=== PATIENT | female | born 1970 | race Two or more races ===

== ENCOUNTER 2017-09-09 14:11 | Inpatient (IN) | payer OTHER ==
[2017-09-09 15:53] VITALS: BMI 16.0
[2017-09-09] MEDS ORDERED: ALBUTEROL SO4 18 GM HFA INHALER IH PRN (16:10)
[2017-09-09] MEDS ORDERED: LOPERAMIDE HCL 2 MG CAPSULE PO PRN (16:12)
[2017-09-09] MEDS ORDERED: ALBUTEROL SO4 2.5/IPRATROPIUM 0.5 INH SOL 3 ML VIAL.NEB. NEB PRN (16:12)
[2017-09-09] MEDS ORDERED: chlordiazePOXIDE HCL 25 MG CAPSULE PO PRN (16:12)
[2017-09-09] MEDS ORDERED: MENTHOL/PHENOL 1 EACH UD MM PRN (16:12)
[2017-09-09] MEDS ORDERED: MAG HYDROX/AL HYDROX/SIMETH 30 ML UNIT-DOSE CUP PO PRN (16:12)
[2017-09-09] MEDS ORDERED: guaiFENesin/D-METHORPHAN HB 10 ML UNIT-DOSE CUPS PO PRN (16:12)
[2017-09-09] MEDS ORDERED: MAGNESIUM CITRATE 300 ML BOTTLE PO PRN (16:12)
[2017-09-09] MEDS ORDERED: P-EPHED 60MG/TRIPROLIDI 2.5MG TABLET PO PRN (16:12)
[2017-09-09] MEDS ORDERED: MAGNESIUM HYDROX 2400MG/30ML ORAL SUSPENSION 30 ML CUP PO PRN (16:12)
[2017-09-09] MEDS ORDERED: ACETAMINOPHEN 325 MG TABLET (FP) PO PRN (16:12)
[2017-09-09] MEDS ORDERED: hydrOXYzine PAMOATE 25 MG CAPSULE (FP) PO PRN (16:12)
[2017-09-09] MEDS ORDERED: NICOTINE POLACRILEX 2 MG GUM BC PRN (16:12)
[2017-09-09] MEDS ORDERED: IBUPROFEN 400 MG TABLET (FP) PO PRN (16:12)
--- NOTE | 2017-09-09 16:12 | HP ---
COWS - Scale Resting Pulse: 1= [place] 81-100 Sweatin= Chills/Flushing Restless Observation: 1= Difficult to Sit Still Pupil Size: 1= Pupils >than Normal Bone or Joint Aches: 1= Mild Discomfort Runny Nose/ Eye Tearin= Runny Nose/Eyes GI Upset > 30mins: 2= Nausea/Diarrhea Tremor Observation: 1= Tremor [place], Not Seen Yawning Observation: 1= 1-2x During Session Anxiety or Irritability: 2=Irritable/Anxious Goose Flesh Skin: 0=Smooth Skin COWS Score: 13 CIWA Score - CIWA Score Nausea/Vomitin Muscle Tremors: 2 Anxiety: 3 Agitation: 4-Moderately Restless Paroxysmal Sweats: 1-Minimal Palms Moist Orientation: 0-Oriented Tacttile Disturbances: 2-Mild Itch/Numbness/Burn (both hands) Auditory Disturbances: 0-None Visual Disturbances: 0-None Headache: 0-None Present CIWA-Ar Total Score: 14 Admission ROS S - HPI Chief Complaint: opioid and alcohol withdrawal symptoms Allergies/Adverse Reactions: Allergies Allergy/AdvReac Type Severity Reaction Status Date / Time No Known Allergies Allergy Verified 09/09/17 16:03 History of Present Illness: 47 yo female with hx of alcohol, crack /cocaine, heroin and nicotine dependence is here seeking detox for the first time. PMHX: HIV, asthma, and anxiety. Denies suicidal / homicidal ideation or hx of suicide attempts. Denies hx of blackouts or seizures. Last detox [facility] 7 years ago. Exam Limitations: No Limitations - Ebola screening Have you traveled outside of the country in the last 21 days: No Have you had contact with anyone from an Ebola affected area: No Have you been sick,other than usual withdrawal symptoms: No Do you have a fever: No - Review of Systems Constitutional: Chills, Loss of Appetite, Changes in sleep, Weakness, Unintentional Wgt. Loss EENT: reports: Blurred Vision (wears glasses), Nose Congestion Respiratory: reports: No Symptoms reported Cardiac: reports: No Symptoms Reported GI: reports: Nausea, Poor Appetite, Poor Fluid Intake : reports: No Symptoms Reported Musculoskeletal: reports: Back Pain, Joint Pain Integumentary: reports: No Symptoms Reported Neuro: reports: Weakness Endocrine: reports: No Symptoms Reported Hematology: reports: See HPI Psychiatric: reports: Orientated x3, Anxious Other Systems: Reviewed and Negative Patient History - Patient Medical History Hx Anemia: No Hx Asthma: Yes (Pt is on MDI) Hx Chronic Obstructive Pulmonary Disease (COPD): No Hx Cancer: No Hx Cardiac Disorders: No Hx Congestive Heart Failure: No Hx Hypertension: No Hx Hypercholesterolemia: No Hx Pacemaker: No HX Cerebrovascular Accident: No Hx Seizures: No Hx Dementia: No Hx Diabetes: No Hx Gastrointestinal Disorders: No Hx Liver Disease: No Hx Genitourinary Disorders: No Hx Sexually Transmitted Disorders: No Hx Renal Disease (ESRD): No Hx Thyroid Disease: No Hx Human Immunodeficiency Virus (HIV): Yes (HIV +) Hx Hepatitis C: No Hx Depression: No Hx Suicide Attempt: No Hx Bipolar Disorder: No Hx Schizophrenia: No - Patient Surgical History Past Surgical History: No - PPD History Previous Implant?: Yes Documented Results: Negative w/o proof Implanted On Prior [facility] Admission?: No PPD to be Administered?: Yes - Reproductive History Patient is a Female of Child Bearing Age (11 -55 yrs old): Yes Last Menstrual Period: 09/07/17 Patient : No - Smoking Cessation Smoking history: Current every day smoker Have you smoked in the past 12 months: Yes Aproximately how many cigarettes per day: 10 Hx Chewing Tobacco Use: No Initiated information on smoking cessation: Yes 'Breaking Loose' booklet given: 09/09/17 - Substance & Tx. History Hx Alcohol Use: Yes Hx Substance Use: Yes Substance Use Type: Alcohol, Cocaine, Heroin Hx Substance Use Treatment: Yes (Last detox [facility] 7 years ago. ) - Substances Abused Heroin Route: Inhalation Frequency: Daily Amount used: 3 BAGS Age of first use: 44 Date of Last Use: 09/09/17 Crack Route: Smoking Frequency: Daily Amount used: $100 Age of first use: 16 Date of Last Use: 09/08/17 Marijuana/Hashish Route: Smoking Frequency: Daily Amount used: $30 Age of first use: 16 Date of Last Use: 09/08/17 Alcohol Route: Oral Frequency: Daily Amount used: 6pk beer Age of first use: 18 Date of Last Use: 09/08/17 Family Disease History - Family Disease History Family Disease History: Heart Disease: Mother (alive, HTN, Stroke ), Other: Mother Admission Physical Exam BHS - Vital Signs Vital Signs: Vital Signs - 24 hr 06/21/18 15:41 Temperature 99.0 F Pulse Rate 89 Respiratory 18 Rate Blood Pressure 112/73 - Physical General Appearance: Yes: Disheveled, Thin, Sweating, Anxious HEENTM: Yes: EOMI, Hearing grossly Normal, Normal ENT Inspection, Normocephalic , Normal Voice, MANDY, Pharynx Normal, Tm's normal, Rhinorrhea, Other (poor dentition) Respiratory: Yes: Chest Non-Tender, Lungs Clear, Normal Breath Sounds, No Respiratory Distress, No Accessory Muscle Use Neck: Yes: Within Normal Limits Breast: Yes: Breast Exam Deferred Cardiology: Yes: Regular Rhythm, Regular Rate Abdominal: Yes: Normal Bowel Sounds, Non Tender, Flat, Soft Genitourinary: Yes: Within Normal Limits Back: Yes: Normal Inspection Musculoskeletal: Yes: full range of Motion, Gait Steady, Pelvis Stable Extremities: Yes: Normal Capillary Refill, Normal Inspection, Normal Range of Motion, Non-Tender Neurological: Yes: deputy court clerk II-XII NML intact, Fully Oriented, Alert, Motor Strength 5/5, Depressed Affect Integumentary: Yes: Normal Color, Warm, Diaphoresis Lymphatic: Yes: Within Normal Limits - Diagnostic (1) Alcohol dependence with withdrawal Current Visit: Yes Status: Acute Qualifiers: Complication of substance-induced condition: uncomplicated Qualified Code(s ): F10.230 - Alcohol dependence with withdrawal, uncomplicated (2) Opioid dependence with withdrawal Current Visit: Yes Status: Acute (3) Cocaine dependence Current Visit: Yes Status: Acute Qualifiers: Substance use status: uncomplicated Qualified Code(s): F14.20 - Cocaine dependence, uncomplicated (4) HIV (human immunodeficiency virus infection) Current Visit: Yes Status: Chronic (5) Asthma Current Visit: Yes Status: Chronic Qualifiers: Asthma severity: mild Asthma persistence: intermittent Asthma complication type: unspecified Qualified Code(s): J45.20 - Mild intermittent asthma, uncomplicated (6) Nicotine dependence Current Visit: Yes Status: Acute Cleared for Admission S - Detox or Rehab [facility] Level of Care: Medically Managed Detox Regimen/Protocol: Methadone/Librium [facility] Breath Alcohol Content Breath Alcohol Content: 0 Urine Pregancy Test - Result Urine Test Results: Negative- NO Line Present Urine Drug Screen - Results Drug Screen Negative: No Urine Drug Screen Results: THC-Marijuana, KERRY-Cocaine, OPI-Opiates
[2017-09-09] MEDS ORDERED: chlordiazePOXIDE HCL 25 MG CAPSULE PO ONE (18:00)
[2017-09-09] MEDS ORDERED: METHADONE HCL 10 MG TABLET (FOR DETOX USE ONLY) PO ONE ×2 (18:15→23:00)
[2017-09-09] MEDS: THIAMINE HCL 100 MG TABLET (FP) PO SCH (22:06)
[2017-09-09] MEDS: chlordiazePOXIDE HCL 25 MG CAPSULE PO SCH (22:07)
[2017-09-09] MEDS: MELATONIN 5 MG TABLETS PO PRN (22:08)
[2017-09-10] MEDS: chlordiazePOXIDE HCL 25 MG CAPSULE PO SCH ×4 (05:43→22:23)
--- NOTE | 2017-09-10 09:03 | EKG ---
Test Reason : Blood Pressure : / mmHG Vent. Rate : 055 BPM Atrial Rate : 055 BPM P-R Int : 146 ms QRS Dur : 072 ms QT Int : 408 ms P-R-T Axes : 076 077 072 degrees QTc Int : 390 ms SINUS BRADYCARDIA WITH SINUS ARRHYTHMIA NO PREVIOUS ECGS AVAILABLE Confirmed by CHATA GARCIA MD ([id number]) on 09/10/2017 9:03:40 AM Referred By: Confirmed By:CHATA GARCIA MD
[2017-09-10 09:47] LABS: HEMATOCRIT 32.3 % (32.4-45.2); HEMOGLOBIN 10.8 GM/dL (10.7-15.3); MCH 31.5 pg (25.7-33.7); MCHC 33.4 g/dl (32.0-36.0); MEAN CELL VOLUME 94.4 fl (80-96); MEAN PLT VOLUME 7.5 fl (7.5-11.1); PLATELET COUNT 306 K/MM3 (134-434); RBC 3.42 M/mm3 (3.60-5.2); RDW 14.1 % (11.6-15.6); WHITE BLOOD COUNT 3.3 K/mm3 (4.0-10.0)
[2017-09-10] MEDS ORDERED: METHADONE HCL 10 MG TABLET (FOR DETOX USE ONLY) PO SCH (10:00)
[2017-09-10 10:51] LABS: ALBUMIN 2.7 g/dl (3.4-5.0); ALK PHOS 53 U/L (45-117); ANION GAP 7 (8-16); BILIRUBIN,TOTAL 0.2 mg/dL (0.2-1.0); BLOOD UREA NITROGEN 12 mg/dL (7-18); CALCIUM 8.1 mg/dL (8.5-10.1); CHLORIDE 107 mmol/L (98-107); CO2 28 mmol/L (21-32); CREATININE 0.8 mg/dL (0.55-1.02); GLUCOSE,RANDOM 98 mg/dL (74-106); POTASSIUM 4.1 mmol/L (3.5-5.1); SGOT/AST 14 U/L (15-37); SGPT/ALT 13 U/L (12-78); SODIUM 142 mmol/L (136-145); TOT PROT 6.6 g/dl (6.4-8.2)
[2017-09-10] MEDS: PRENATAL VITAMINS W/ FOLIC ACID TABLET (FP) PO SCH (10:54)
[2017-09-10] MEDS: NICOTINE 14 MG/24 HOURS TOPICAL PATCH TD SCH (10:55)
--- NOTE | 2017-09-10 11:50 | CONSULT ---
[facility] Psychiatric Consult - Data Date of interview: 09/10/17 Admission source: [facility] Identifying data: Patient is a 47 year old single female, mother of one, domiciled and supported by public assistance. This is patient's first admission to detox at [facility]. Pt. admitted to for alcohol, cocaine, and opiate dependence. Substance Abuse History: Smoking Cessation. Smoking history: Current every day smoker. Have you smoked in the past 12 months: Yes. Aproximately how many cigarettes per day: 10. Hx Chewing Tobacco Use: No. Initiated information on smoking cessation: Yes. 'Breaking Loose' booklet given: 09/09/17. - Substance & Tx. History. Hx Alcohol Use: Yes. Hx Substance Use: Yes. Substance Use Type : Alcohol, Cocaine, Heroin. Hx Substance Use Treatment: Yes (Last detox [facility] 7 years ago. ). - Substances Abused. Heroin. Route: Inhalation. Frequency: Daily. Amount used: 3 BAGS. Age of first use: 44. Date of Last Use : 09/09/17. Crack. Route: Smoking. Frequency: Daily. Amount used: $100. Age of first use: 16. Date of Last Use: 09/08/17. Marijuana/Hashish. Route : Smoking. Frequency: Daily. Amount used: $30. Age of first use: 16. Date of Last Use: 09/08/17. Alcohol. Route: Oral. Frequency: Daily. Amount used: 6pk beer. Age of first use: 18. Date of Last Use: 09/08/17 Medical History: Asthma, HIV Psychiatric History: Patient denies h/o psychiatric hospitalization, outpatient care and suicide attempt. Physical/Sexual Abuse/Trauma History: Denies. Mental Status Exam - Mental Status Exam Alert and Oriented to: Time, Place, Person Cognitive Function: Good Patient Appearance: Well Groomed Mood: Hopeful, Euthymic Affect: Mood Congruent Patient Behavior: Appropriate, Cooperative Speech Pattern: Appropriate Voice Loudness: Normal Thought Process: Intact, Goal Oriented Thought Disorder: Not Present Hallucinations: Denies Suicidal Ideation: Denies Homicidal Ideation: Denies Insight/Judgement: Fair Sleep: Fair Appetite: Poor Muscle strength/Tone: Normal Gait/Station: Normal Psychiatric Findings - Problem List ([place] 1, 2,3) (1) Insomnia Current Visit: Yes Status: Acute (2) Alcohol dependence with withdrawal Current Visit: Yes Status: Acute Qualifiers: Complication of substance-induced condition: uncomplicated Qualified Code(s ): F10.230 - Alcohol dependence with withdrawal, uncomplicated (3) Cocaine dependence Current Visit: Yes Status: Acute Qualifiers: Substance use status: uncomplicated Qualified Code(s): F14.20 - Cocaine dependence, uncomplicated (4) Nicotine dependence Current Visit: Yes Status: Acute (5) Opioid dependence with withdrawal Current Visit: Yes Status: Acute (6) Asthma Current Visit: Yes Status: Chronic Qualifiers: Asthma severity: mild Asthma persistence: intermittent Asthma complication type: unspecified Qualified Code(s): J45.20 - Mild intermittent asthma, uncomplicated (7) HIV (human immunodeficiency virus infection) Current Visit: Yes Status: Chronic - Initial Treatment Plan Initial Treatment Plan: Psychoeducation provided. Detoxification in progress. Melatonin 5mg ordered for insomnia by [employer].
--- NOTE | 2017-09-10 13:12 | PN ---
S CIWA - CIWA Score Nausea/Vomitin-No Nausea/No Vomiting Muscle Tremors: 4-Moderate,w/Arms Extend Anxiety: 4-Mod. Anxious/Guarded Agitation: 4-Moderately Restless Paroxysmal Sweats: 1-Minimal Palms Moist Orientation: 0-Oriented Tacttile Disturbances: 0-None Auditory Disturbances: 0-None Visual Disturbances: 0-None Headache: 0-None Present CIWA-Ar Total Score: 13 BHS COWS - Scale Resting Pulse: 1= [place] 81-100 Sweatin= Chills/Flushing Restless Observation: 3= Extraneous Movement Pupil Size: 0= Normal to Room Light Bone or Joint Aches: 4=Acute Joint/Muscle Pain Runny Nose/ Eye Tearin= None GI Upset > 30mins: 1= Stomach Cramp Tremor Observation of Outstretched Hands: 1= Tremor [place], Not Seen Yawning Observation: 1= 1-2x During Session Anxiety or Irritability: 2=Irritable/Anxious Goose Flesh Skin: 0=Smooth Skin COWS Score: 14 [facility] Progress Note (SOAP) Subjective: ANXIETY,SWEATS, FATIGUE. Objective: 09/10/17 13:11 Vital Signs 09/10/17 09/10/17 06:00 10:00 Temperature 98.2 F 98.2 F Pulse Rate 76 84 Respiratory 16 16 Rate Blood Pressure 99/66 100/65 Laboratory Tests 09/10/17 09/10/17 07:00 07:00 WBC 3.3 L RBC 3.42 L Hgb 10.8 Hct 32.3 L MCV 94.4 MCH 31.5 MCHC 33.4 RDW 14.1 Plt Count 306 MPV 7.5 Sodium 142 Potassium 4.1 Chloride 107 Carbon Dioxide 28 Anion Gap 7 L BUN 12 Creatinine 0.8 Creat Clearance w eGFR > 60 Random Glucose 98 Calcium 8.1 L Total Bilirubin 0.2 AST 14 L ALT 13 Alkaline Phosphatase 53 Total Protein 6.6 Albumin 2.7 L OTHER LABS PENDING Assessment: 09/10/17 13:11 WITHDRAWAL SX Plan: CONTINUE DETOX INCREASE PO FLUIDS
[2017-09-10] MEDS: THIAMINE HCL 100 MG TABLET (FP) PO SCH (22:23)
[2017-09-11] MEDS: chlordiazePOXIDE HCL 25 MG CAPSULE PO SCH ×3 (06:09→17:56)
[2017-09-11 10:32] LABS: URINE APPEARANCE SLCLOUDY; URINE BILIRUBIN NEGATIVE (<2.0 mg/dL); URINE COLOR YELLOW; URINE GLUCOSE (UA) NEGATIVE (NEGATIVE); URINE KETONE NEGATIVE (NEGATIVE); URINE LEUK ESTERASE NEGATIVE (NEGATIVE); URINE NITRITE NEGATIVE (NEGATIVE); URINE PROTEIN NEGATIVE (NEGATIVE); URINE UROBILINOGEN NEGATIVE mg/dL (0.2-1.0)
[2017-09-11] MEDS: PRENATAL VITAMINS W/ FOLIC ACID TABLET (FP) PO SCH (10:44)
[2017-09-11] MEDS: METHADONE HCL 5 MG TABLET (FOR DETOX USE ONLY) PO SCH (10:44)
[2017-09-11] MEDS: NICOTINE 14 MG/24 HOURS TOPICAL PATCH TD SCH (10:47)
--- NOTE | 2017-09-11 17:39 | PN ---
S CIWA - CIWA Score Nausea/Vomitin Muscle Tremors: 2 Anxiety: 2 Agitation: 2 Paroxysmal Sweats: 2 Orientation: 0-Oriented Tacttile Disturbances: 1-Very Mild Itch/Numbness Auditory Disturbances: 0-None Visual Disturbances: 1-Very Mild Sensitivity Headache: 2-Mild CIWA-Ar Total Score: 14 BHS COWS - Scale Resting Pulse: 1= [place] 81-100 Sweatin=Flushed/Facial Moisture Restless Observation: 1= Difficult to Sit Still Pupil Size: 0= Normal to Room Light Bone or Joint Aches: 2= Severe Diffuse Aches Runny Nose/ Eye Tearin= Nasal Congestion GI Upset > 30mins: 2= Nausea/Diarrhea Tremor Observation of Outstretched Hands: 2= Slight Tremor Visible Yawning Observation: 1= 1-2x During Session Anxiety or Irritability: 2=Irritable/Anxious Goose Flesh Skin: 0=Smooth Skin COWS Score: 14 S Progress Note (SOAP) Subjective: Tremors, abdominal cramps, restlessness and sleep interruption Objective: 09/11/17 17:38 Vital Signs - 8 hr 09/11/17 10:52 Temperature 98.2 F Pulse Rate 84 Respiratory 18 Rate Blood Pressure 109/78 Laboratory Last Values WBC 3.3 K/mm3 (4.0-10.0) L 09/10/17 07:00 RBC 3.42 M/mm3 (3.60-5.2) L 09/10/17 07:00 Hgb 10.8 GM/dL (10.7-15.3) 09/10/17 07:00 Hct 32.3 % (32.4-45.2) L 09/10/17 07:00 MCV 94.4 fl (80-96) 09/10/17 07:00 MCH 31.5 pg (25.7-33.7) 09/10/17 07:00 MCHC 33.4 g/dl (32.0-36.0) 09/10/17 07:00 RDW 14.1 % (11.6-15.6) 09/10/17 07:00 Plt Count 306 K/MM3 (134-434) 09/10/17 07:00 MPV 7.5 fl (7.5-11.1) 09/10/17 07:00 Sodium 142 mmol/L (136-145) 09/10/17 07:00 Potassium 4.1 mmol/L (3.5-5.1) 09/10/17 07:00 Chloride 107 mmol/L (98-107) 09/10/17 07:00 Carbon Dioxide 28 mmol/L (21-32) 09/10/17 07:00 Anion Gap 7 (8-16) L 09/10/17 07:00 BUN 12 mg/dL (7-18) 09/10/17 07:00 Creatinine 0.8 mg/dL (0.55-1.02) 09/10/17 07:00 Creat Clearance w eGFR > 60 (>60) 09/10/17 07:00 Random Glucose 98 mg/dL (74-106) 09/10/17 07:00 Calcium 8.1 mg/dL (8.5-10.1) L 09/10/17 07:00 Total Bilirubin 0.2 mg/dL (0.2-1.0) 09/10/17 07:00 AST 14 U/L (15-37) L 09/10/17 07:00 ALT 13 U/L (12-78) 09/10/17 07:00 Alkaline Phosphatase 53 U/L (45-117) 09/10/17 07:00 Total Protein 6.6 g/dl (6.4-8.2) 09/10/17 07:00 Albumin 2.7 g/dl (3.4-5.0) L 09/10/17 07:00 Urine Color Yellow 09/11/17 08:52 Urine Appearance Slcloudy 09/11/17 08:52 Urine pH 7.0 (5.0-8.0) 09/11/17 08:52 Ur Specific [place] 1.014 (1.001-1.035) 09/11/17 08:52 Urine Protein Negative (NEGATIVE) 09/11/17 08:52 Urine Glucose (UA) Negative (NEGATIVE) 09/11/17 08:52 Urine Ketones Negative (NEGATIVE) 09/11/17 08:52 Urine Blood Negative (NEGATIVE) 09/11/17 08:52 Urine Nitrite Negative (NEGATIVE) 09/11/17 08:52 Urine Bilirubin Negative (<2.0 mg/dL) 09/11/17 08:52 Urine Urobilinogen Negative mg/dL (0.2-1.0) 09/11/17 08:52 Ur Leukocyte Esterase Negative (NEGATIVE) 09/11/17 08:52 RPR Titer Nonreactive (NONREACTIVE) 09/10/17 07:00 Labs noted Assessment: 09/11/17 17:38 Withdrawal sx Plan: Continue detox
[2017-09-11] MEDS: THIAMINE HCL 100 MG TABLET (FP) PO SCH (22:37)
[2017-09-11] MEDS: chlordiazePOXIDE 5 MG CAPSULE PO SCH (22:37)
[2017-09-12] MEDS: chlordiazePOXIDE 5 MG CAPSULE PO SCH ×2 (06:44→10:58)
[2017-09-12] MEDS: PRENATAL VITAMINS W/ FOLIC ACID TABLET (FP) PO SCH (10:48)
[2017-09-12] MEDS: METHADONE HCL 5 MG TABLET (FOR DETOX USE ONLY) PO SCH (10:48)
[2017-09-12] MEDS: NICOTINE 14 MG/24 HOURS TOPICAL PATCH TD SCH (10:58)
--- NOTE | 2017-09-12 11:13 | PN ---
[facility] Progress Note (SOAP) Subjective: joints pain body aches sweat tremor trouble sleep at night Objective: 09/12/17 11:12 Vital Signs Temperature 98.4 F 09/12/17 10:37 Pulse Rate 91 H 09/12/17 10:37 Respiratory Rate 16 09/12/17 10:37 Blood Pressure 93/54 09/12/17 10:37 O2 Sat by Pulse Oximetry (%) Laboratory Last Values WBC 3.3 K/mm3 (4.0-10.0) L 09/10/17 07:00 RBC 3.42 M/mm3 (3.60-5.2) L 09/10/17 07:00 Hgb 10.8 GM/dL (10.7-15.3) 09/10/17 07:00 Hct 32.3 % (32.4-45.2) L 09/10/17 07:00 MCV 94.4 fl (80-96) 09/10/17 07:00 MCH 31.5 pg (25.7-33.7) 09/10/17 07:00 MCHC 33.4 g/dl (32.0-36.0) 09/10/17 07:00 RDW 14.1 % (11.6-15.6) 09/10/17 07:00 Plt Count 306 K/MM3 (134-434) 09/10/17 07:00 MPV 7.5 fl (7.5-11.1) 09/10/17 07:00 Sodium 142 mmol/L (136-145) 09/10/17 07:00 Potassium 4.1 mmol/L (3.5-5.1) 09/10/17 07:00 Chloride 107 mmol/L (98-107) 09/10/17 07:00 Carbon Dioxide 28 mmol/L (21-32) 09/10/17 07:00 Anion Gap 7 (8-16) L 09/10/17 07:00 BUN 12 mg/dL (7-18) 09/10/17 07:00 Creatinine 0.8 mg/dL (0.55-1.02) 09/10/17 07:00 Creat Clearance w eGFR > 60 (>60) 09/10/17 07:00 Random Glucose 98 mg/dL (74-106) 09/10/17 07:00 Calcium 8.1 mg/dL (8.5-10.1) L 09/10/17 07:00 Total Bilirubin 0.2 mg/dL (0.2-1.0) 09/10/17 07:00 AST 14 U/L (15-37) L 09/10/17 07:00 ALT 13 U/L (12-78) 09/10/17 07:00 Alkaline Phosphatase 53 U/L (45-117) 09/10/17 07:00 Total Protein 6.6 g/dl (6.4-8.2) 09/10/17 07:00 Albumin 2.7 g/dl (3.4-5.0) L 09/10/17 07:00 Urine Color Yellow 09/11/17 08:52 Urine Appearance Slcloudy 09/11/17 08:52 Urine pH 7.0 (5.0-8.0) 09/11/17 08:52 Ur Specific [place] 1.014 (1.001-1.035) 09/11/17 08:52 Urine Protein Negative (NEGATIVE) 09/11/17 08:52 Urine Glucose (UA) Negative (NEGATIVE) 09/11/17 08:52 Urine Ketones Negative (NEGATIVE) 09/11/17 08:52 Urine Blood Negative (NEGATIVE) 09/11/17 08:52 Urine Nitrite Negative (NEGATIVE) 09/11/17 08:52 Urine Bilirubin Negative (<2.0 mg/dL) 09/11/17 08:52 Urine Urobilinogen Negative mg/dL (0.2-1.0) 09/11/17 08:52 Ur Leukocyte Esterase Negative (NEGATIVE) 09/11/17 08:52 RPR Titer Nonreactive (NONREACTIVE) 09/10/17 07:00 lab noted Assessment: 09/12/17 11:13 alcohol and opiate withdrawal sx Plan: continue detox
[2017-09-13] MEDS: chlordiazePOXIDE HCL 10 MG CAPSULE PO SCH ×4 (06:36→17:59)
[2017-09-13] MEDS: chlordiazePOXIDE 5 MG CAPSULE PO SCH (08:26)
[2017-09-13] MEDS: THIAMINE HCL 100 MG TABLET (FP) PO SCH ×2 (08:26→22:18)
[2017-09-13] MEDS ORDERED: METHADONE HCL 10 MG TABLET (FOR DETOX USE ONLY) PO SCH (10:00)
[2017-09-13] MEDS: PRENATAL VITAMINS W/ FOLIC ACID TABLET (FP) PO SCH (10:56)
[2017-09-13] MEDS: NICOTINE 14 MG/24 HOURS TOPICAL PATCH TD SCH (10:57)
--- NOTE | 2017-09-13 11:52 | PN ---
[facility] Progress Note (SOAP) Subjective: feeling better no tremor no body ache sleep better at night Objective: 09/13/17 11:50 Vital Signs Temperature 100 F H 09/13/17 11:36 Pulse Rate 102 H 09/13/17 11:36 Respiratory Rate 18 09/13/17 11:36 Blood Pressure 100/65 09/13/17 11:36 O2 Sat by Pulse Oximetry (%) Laboratory Last Values WBC 3.3 K/mm3 (4.0-10.0) L 09/10/17 07:00 RBC 3.42 M/mm3 (3.60-5.2) L 09/10/17 07:00 Hgb 10.8 GM/dL (10.7-15.3) 09/10/17 07:00 Hct 32.3 % (32.4-45.2) L 09/10/17 07:00 MCV 94.4 fl (80-96) 09/10/17 07:00 MCH 31.5 pg (25.7-33.7) 09/10/17 07:00 MCHC 33.4 g/dl (32.0-36.0) 09/10/17 07:00 RDW 14.1 % (11.6-15.6) 09/10/17 07:00 Plt Count 306 K/MM3 (134-434) 09/10/17 07:00 MPV 7.5 fl (7.5-11.1) 09/10/17 07:00 Sodium 142 mmol/L (136-145) 09/10/17 07:00 Potassium 4.1 mmol/L (3.5-5.1) 09/10/17 07:00 Chloride 107 mmol/L (98-107) 09/10/17 07:00 Carbon Dioxide 28 mmol/L (21-32) 09/10/17 07:00 Anion Gap 7 (8-16) L 09/10/17 07:00 BUN 12 mg/dL (7-18) 09/10/17 07:00 Creatinine 0.8 mg/dL (0.55-1.02) 09/10/17 07:00 Creat Clearance w eGFR > 60 (>60) 09/10/17 07:00 Random Glucose 98 mg/dL (74-106) 09/10/17 07:00 Calcium 8.1 mg/dL (8.5-10.1) L 09/10/17 07:00 Total Bilirubin 0.2 mg/dL (0.2-1.0) 09/10/17 07:00 AST 14 U/L (15-37) L 09/10/17 07:00 ALT 13 U/L (12-78) 09/10/17 07:00 Alkaline Phosphatase 53 U/L (45-117) 09/10/17 07:00 Total Protein 6.6 g/dl (6.4-8.2) 09/10/17 07:00 Albumin 2.7 g/dl (3.4-5.0) L 09/10/17 07:00 Urine Color Yellow 09/11/17 08:52 Urine Appearance Slcloudy 09/11/17 08:52 Urine pH 7.0 (5.0-8.0) 09/11/17 08:52 Ur Specific [place] 1.014 (1.001-1.035) 09/11/17 08:52 Urine Protein Negative (NEGATIVE) 09/11/17 08:52 Urine Glucose (UA) Negative (NEGATIVE) 09/11/17 08:52 Urine Ketones Negative (NEGATIVE) 09/11/17 08:52 Urine Blood Negative (NEGATIVE) 09/11/17 08:52 Urine Nitrite Negative (NEGATIVE) 09/11/17 08:52 Urine Bilirubin Negative (<2.0 mg/dL) 09/11/17 08:52 Urine Urobilinogen Negative mg/dL (0.2-1.0) 09/11/17 08:52 Ur Leukocyte Esterase Negative (NEGATIVE) 09/11/17 08:52 RPR Titer Nonreactive (NONREACTIVE) 09/10/17 07:00 lab noted Assessment: 09/13/17 11:50 mild withdrawal sx Plan: medically supervised detox encourage the patient continue ART follow up with infectious disease provider
--- NOTE | 2017-09-13 22:17 | EKG ---
Test Reason : Blood Pressure : / mmHG Vent. Rate : 077 BPM Atrial Rate : 077 BPM P-R Int : 146 ms QRS Dur : 080 ms QT Int : 366 ms P-R-T Axes : 067 075 072 degrees QTc Int : 414 ms NORMAL SINUS RHYTHM NORMAL ECG WHEN COMPARED WITH ECG OF 09-SEP-2017 18:39, NO SIGNIFICANT CHANGE WAS FOUND Confirmed by UDYEN KERR MD ([id number]) on 09/13/2017 10:17:22 PM Referred By: Confirmed By:DUYEN KERR MD
[2017-09-13] MEDS: MELATONIN 5 MG TABLETS PO PRN (22:18)
[2017-09-14] MEDS ORDERED: METHADONE HCL 5 MG TABLET (FOR DETOX USE ONLY) PO SCH (06:00)
--- NOTE | 2017-09-14 08:40 | DS ---
[facility] Detox Discharge Summary Admission Date: 09/09/17 Discharge Date: 09/14/17 - History Present History: Alcohol Dependence, Opioid Dependence Additional Comments: 47 years old female admitted 09/09/17 for opiate and alcohol withdrawal sx completed alcohol and opiate detox regimen tolerated well denies alcohol and opiate withdrawal sx alert oriented x 3 no acute distress aftercare infectious disease specialist for hiv, addiction, and psychoeducation - Physical Exam Results Vital Signs: Vital Signs Temperature 99.0 F 09/14/17 06:00 Pulse Rate 92 H 09/14/17 06:00 Respiratory Rate 16 09/14/17 06:00 Blood Pressure 99/65 09/14/17 06:00 O2 Sat by Pulse Oximetry (%) Pertinent Admission Physical Exam Findings: alcohol and opiate withdrawal sx Vital Signs Temperature 99.0 F 09/14/17 06:00 Pulse Rate 92 H 09/14/17 06:00 Respiratory Rate 16 09/14/17 06:00 Blood Pressure 99/65 09/14/17 06:00 O2 Sat by Pulse Oximetry (%) Laboratory Last Values WBC 3.3 K/mm3 (4.0-10.0) L 09/10/17 07:00 RBC 3.42 M/mm3 (3.60-5.2) L 09/10/17 07:00 Hgb 10.8 GM/dL (10.7-15.3) 09/10/17 07:00 Hct 32.3 % (32.4-45.2) L 09/10/17 07:00 MCV 94.4 fl (80-96) 09/10/17 07:00 MCH 31.5 pg (25.7-33.7) 09/10/17 07:00 MCHC 33.4 g/dl (32.0-36.0) 09/10/17 07:00 RDW 14.1 % (11.6-15.6) 09/10/17 07:00 Plt Count 306 K/MM3 (134-434) 09/10/17 07:00 MPV 7.5 fl (7.5-11.1) 09/10/17 07:00 Sodium 142 mmol/L (136-145) 09/10/17 07:00 Potassium 4.1 mmol/L (3.5-5.1) 09/10/17 07:00 Chloride 107 mmol/L (98-107) 09/10/17 07:00 Carbon Dioxide 28 mmol/L (21-32) 09/10/17 07:00 Anion Gap 7 (8-16) L 09/10/17 07:00 BUN 12 mg/dL (7-18) 09/10/17 07:00 Creatinine 0.8 mg/dL (0.55-1.02) 09/10/17 07:00 Creat Clearance w eGFR > 60 (>60) 09/10/17 07:00 Random Glucose 98 mg/dL (74-106) 09/10/17 07:00 Calcium 8.1 mg/dL (8.5-10.1) L 09/10/17 07:00 Total Bilirubin 0.2 mg/dL (0.2-1.0) 09/10/17 07:00 AST 14 U/L (15-37) L 09/10/17 07:00 ALT 13 U/L (12-78) 09/10/17 07:00 Alkaline Phosphatase 53 U/L (45-117) 09/10/17 07:00 Total Protein 6.6 g/dl (6.4-8.2) 09/10/17 07:00 Albumin 2.7 g/dl (3.4-5.0) L 09/10/17 07:00 Urine Color Yellow 09/11/17 08:52 Urine Appearance Slcloudy 09/11/17 08:52 Urine pH 7.0 (5.0-8.0) 09/11/17 08:52 Ur Specific [place] 1.014 (1.001-1.035) 09/11/17 08:52 Urine Protein Negative (NEGATIVE) 09/11/17 08:52 Urine Glucose (UA) Negative (NEGATIVE) 09/11/17 08:52 Urine Ketones Negative (NEGATIVE) 09/11/17 08:52 Urine Blood Negative (NEGATIVE) 09/11/17 08:52 Urine Nitrite Negative (NEGATIVE) 09/11/17 08:52 Urine Bilirubin Negative (<2.0 mg/dL) 09/11/17 08:52 Urine Urobilinogen Negative mg/dL (0.2-1.0) 09/11/17 08:52 Ur Leukocyte Esterase Negative (NEGATIVE) 09/11/17 08:52 RPR Titer Nonreactive (NONREACTIVE) 09/10/17 07:00 lab noted strong recommend ART adherence - Treatment Hospital Course: Detox Protocol Followed, Detoxed Safely, Responded well, Discharged Condition Good, Rehab Referral Accepted Patient has Accepted a Rehab Referral to: primary infectious disease specialist - Medication Discharge Medications: Ambulatory Orders Elviteg/Cob/Emtri/Tenof Alafen [Genvoya Tablet] 1 each PO DAILY 09/09/17 Multivitamins [Multivit ([facility] Formulary)] 1 tab PO DAILY 09/09/17 Albuterol Sulfate Inhaler - [Ventolin HFA Inhaler -] 2 inh PO Q4H PRN #1 inhaler 09/13/17 - Diagnosis (1) Alcohol dependence with withdrawal Current Visit: Yes Status: Acute Qualifiers: Complication of substance-induced condition: uncomplicated Qualified Code(s ): F10.230 - Alcohol dependence with withdrawal, uncomplicated (2) Opioid dependence with withdrawal Current Visit: Yes Status: Acute (3) HIV (human immunodeficiency virus infection) Current Visit: Yes Status: Chronic (4) Asthma Current Visit: Yes Status: Chronic Qualifiers: Asthma severity: mild Asthma persistence: intermittent Asthma complication type: unspecified Qualified Code(s): J45.20 - Mild intermittent asthma, uncomplicated (5) Nicotine dependence Current Visit: Yes Status: Acute Qualifiers: Nicotine product type: cigarettes Substance use status: in withdrawal Qualified Code(s): F17.213 - Nicotine dependence, cigarettes, with withdrawal (6) Weight decreased Current Visit: Yes Status: Acute - AMA Did Patient Leave Against Medical Advice: No
[2017-09-14 09:08] VITALS: BP 93/57; PULSE 91; TEMP 98.4
[2017-09-14] MEDS: NICOTINE 14 MG/24 HOURS TOPICAL PATCH TD SCH (11:14)
[2017-09-14] MEDS: PRENATAL VITAMINS W/ FOLIC ACID TABLET (FP) PO SCH (11:15)
== END 2017-09-14 12:17 | disposition home or self-care (01) | DRG 773 ==
LOC: YASAS 14:11 → Y6N 17:27
PROVIDERS: ADMIT Family Medicine Addiction Medicine; ATTEND Family Medicine Addiction Medicine
PROC: HZ2ZZZZ Detoxification Services for Substance Abuse Treatment (ICD-10-PCS; principal; 2017-09-09)
DX: F11.23 Opioid dependence with withdrawal (principal); F10.230 Alcohol dependence with withdrawal, uncomplicated; F17.213 Nicotine dependence, cigarettes, with withdrawal; Z21 Asymptomatic human immunodeficiency virus [HIV] infection status; J45.20 Mild intermittent asthma, uncomplicated; G47.00 Insomnia, unspecified; R63.4 Abnormal weight loss; Z68.1 Body mass index [BMI] 19.9 or less, adult
CPT/HCPCS: 36415; 80053; 81003; 85027; 86593; 93005; 93010

== ENCOUNTER 2017-12-14 12:02 | Inpatient (IN) | payer OTHER ==
[2017-12-14 13:30] VITALS: BMI 15.7
--- NOTE | 2017-12-14 14:51 | HP ---
CIWA Score - CIWA Score Nausea/Vomitin Muscle Tremors: 3 Anxiety: 2 Agitation: 2 Paroxysmal Sweats: 1-Minimal Palms Moist Orientation: 0-Oriented Tacttile Disturbances: 1-Very Mild Itch/Numbness Auditory Disturbances: 1-Very Mild Visual Disturbances: 1-Very Mild Sensitivity Headache: 2-Mild CIWA-Ar Total Score: 16 Admission ROS BHS - HPI Chief Complaint: i need help to stop drinking alcohol,cocaine and heroin abused Allergies/Adverse Reactions: Allergies Allergy/AdvReac Type Severity Reaction Status Date / Time No Known Allergies Allergy Verified 12/14/17 14:40 History of Present Illness: this 47 years old female with alcohol,cocaine dependence and heroin abused, seeking detox,withdrawal symptom,last detox 09/09/17 to 09/14/17 hiv since 2008 non compliance last medicated 2 weeks ago asthma weight loss nicotine dependence longest period of sobriety 12 years Exam Limitations: No Limitations - Ebola screening Have you traveled outside of the country in the last 21 days: No Have you had contact with anyone from an Ebola affected area: No Have you been sick,other than usual withdrawal symptoms: No - Review of Systems Constitutional: Chills, Loss of Appetite, Malaise, Night Sweats, Changes in sleep, Weakness, Unintentional Wgt. Loss EENT: reports: Tearing, Nose Congestion Respiratory: reports: Other (asthma) Cardiac: reports: Palpitations GI: reports: Diarrhea, Nausea, Abdominal cramping : reports: No Symptoms Reported Musculoskeletal: reports: Back Pain, Joint Pain, Muscle Pain Integumentary: reports: Dryness Neuro: reports: Headache, Tremors Endocrine: reports: No Symptoms Reported Hematology: reports: No Symptoms Reported, Other (hiv non compliance) Psychiatric: reports: No Sypmtoms Reported, Judgement Intact, Mood/Affect Appropiate, Orientated x3, Anxious, Depressed Patient History - Patient Medical History Hx Anemia: No Hx Asthma: Yes (on albuterol inhaler) Hx Chronic Obstructive Pulmonary Disease (COPD): No Hx Cancer: No Hx Cardiac Disorders: No Hx Congestive Heart Failure: No Hx Hypertension: No Hx Hypercholesterolemia: No Hx Pacemaker: No HX Cerebrovascular Accident: No Hx Seizures: No Hx Dementia: No Hx Diabetes: No Hx Gastrointestinal Disorders: No Hx Liver Disease: No Hx Genitourinary Disorders: No Hx Sexually Transmitted Disorders: No Hx Renal Disease (ESRD): No Hx Thyroid Disease: No Hx Human Immunodeficiency Virus (HIV): Yes (HIV +since 2008) Hx Hepatitis C: No Hx Depression: Yes (anxiety) Hx Suicide Attempt: No Hx Bipolar Disorder: No Hx Schizophrenia: No Other Medical History: no suicidal,no homicidal - Patient Surgical History Past Surgical History: No - PPD History Previous Implant?: Yes Documented Results: Negative w/proof Implanted On Prior [facility] Admission?: Yes Date: 09/11/17 Results: 0 MM PPD to be Administered?: No - Reproductive History Patient is a Female of Child Bearing Age (11 -55 yrs old): Yes Last Menstrual Period: 11/27/17 Patient : No - Smoking Cessation Smoking history: Current every day smoker Have you smoked in the past 12 months: Yes Aproximately how many cigarettes per day: 10 Hx Chewing Tobacco Use: No Initiated information on smoking cessation: Yes 'Breaking Loose' booklet given: 12/14/17 - Substance & Tx. History Hx Alcohol Use: Yes Hx Substance Use: Yes Substance Use Type: Alcohol, Cocaine, Heroin Hx Substance Use Treatment: Yes ([facility] 09/09/17 to 09/14/17) - Substances Abused Alcohol Route: Oral Frequency: Daily Amount used: 6-7 BEERS Age of first use: 12 Date of Last Use: 12/14/17 Heroin Route: Inhalation Frequency: Daily Amount used: 1-2 BAGS Age of first use: 46 Date of Last Use: 12/13/17 Crack Route: Smoking Frequency: Daily Amount used: $100 Age of first use: 16 Date of Last Use: 12/13/17 Marijuana/Hashish Route: Smoking Frequency: Daily Amount used: 50$ Age of first use: 11 Date of Last Use: 12/13/17 Family Disease History - Family Disease History Family Disease History: Heart Disease: Mother (alive, HTN, Stroke ), Other: Mother Admission Physical Exam S - Vital Signs Vital Signs: Vital Signs - 24 hr 12/14/17 13:14 Temperature 98.7 F Pulse Rate 91 H Respiratory 16 Rate Blood Pressure 157/93 - Physical General Appearance: Yes: Moderate Distress, Tremorous, Irritable, Anxious HEENTM: Yes: Normal ENT Inspection, MANDY, Pharynx Normal Respiratory: Yes: Lungs Clear, Normal Breath Sounds, No Respiratory Distress Neck: Yes: Within Normal Limits, Supple, Trachea in good position Breast: Yes: Breast Exam Deferred Cardiology: Yes: Within Normal Limits, Regular Rhythm, Regular Rate, S1, S2 Abdominal: Yes: Within Normal Limits, Normal Bowel Sounds, Non Tender, Soft Genitourinary: Yes: Within Normal Limits Back: Yes: Normal Inspection, Muscle Spasm Musculoskeletal: Yes: Back pain, Muscle Pain Extremities: Yes: Within Normal Limits, Normal Range of Motion, Tremors Neurological: Yes: network infrastructure architect II-XII NML intact, Fully Oriented, Alert, Motor Strength 5/5 Integumentary: Yes: Dry Lymphatic: Yes: Within Normal Limits - Diagnostic (1) Alcohol dependence with withdrawal Current Visit: No Status: Acute Qualifiers: Complication of substance-induced condition: uncomplicated Qualified Code(s ): F10.230 - Alcohol dependence with withdrawal, uncomplicated (2) Cocaine dependence Current Visit: No Status: Acute Qualifiers: Substance use status: uncomplicated Qualified Code(s): F14.20 - Cocaine dependence, uncomplicated (3) Nicotine dependence Current Visit: No Status: Acute Qualifiers: Nicotine product type: cigarettes Substance use status: in withdrawal Qualified Code(s): F17.213 - Nicotine dependence, cigarettes, with withdrawal (4) Weight decreased Current Visit: No Status: Acute (5) Asthma Current Visit: No Status: Chronic Qualifiers: Asthma severity: mild Asthma persistence: intermittent Asthma complication type: unspecified Qualified Code(s): J45.20 - Mild intermittent asthma, uncomplicated (6) HIV (human immunodeficiency virus infection) Current Visit: No Status: Chronic (7) Heroin abuse Current Visit: Yes Status: Acute Cleared for Admission [facility] - Detox or Rehab [facility] Level of Care: Medically Managed (urine for opiate negative,patient is awared will not give methadone) Detox Regimen/Protocol: Librium [facility] Breath Alcohol Content Breath Alcohol Content: 0 Urine Pregancy Test - Result Urine Test Results: Positive - Line Present Urine Drug Screen - Results Urine Drug Screen Results: THC-Marijuana, KERRY-Cocaine
[2017-12-14] MEDS ORDERED: chlordiazePOXIDE HCL 25 MG CAPSULE PO PRN (15:05)
[2017-12-14] MEDS ORDERED: hydrOXYzine PAMOATE 25 MG CAPSULE (FP) PO PRN (15:05)
[2017-12-14] MEDS ORDERED: ACETAMINOPHEN 325 MG TABLET (FP) PO PRN (15:05)
[2017-12-14] MEDS ORDERED: MAG HYDROX/AL HYDROX/SIMETH 30 ML UNIT-DOSE CUP PO PRN (15:05)
[2017-12-14] MEDS ORDERED: IBUPROFEN 400 MG TABLET (FP) PO PRN (15:05)
[2017-12-14] MEDS ORDERED: MAGNESIUM CITRATE 300 ML BOTTLE PO PRN (15:05)
[2017-12-14] MEDS ORDERED: MAGNESIUM HYDROX 2400MG/30ML ORAL SUSPENSION 30 ML CUP PO PRN (15:05)
[2017-12-14] MEDS ORDERED: MENTHOL/PHENOL 1 EACH UD MM PRN (15:05)
[2017-12-14] MEDS ORDERED: guaiFENesin/D-METHORPHAN HB 10 ML UNIT-DOSE CUPS PO PRN (15:05)
[2017-12-14] MEDS ORDERED: P-EPHED 60MG/TRIPROLIDI 2.5MG TABLET PO PRN (15:05)
[2017-12-14] MEDS ORDERED: LOPERAMIDE HCL 2 MG CAPSULE PO PRN (15:05)
[2017-12-14] MEDS ORDERED: ALBUTEROL SO4 8 GM HFA INHALER IH PRN (15:08)
[2017-12-14] MEDS: chlordiazePOXIDE HCL 25 MG CAPSULE PO SCH ×2 (18:14→22:30)
[2017-12-14] MEDS: NICOTINE 21 MG/24 HOURS TOPICAL PATCH TD SCH (18:15)
[2017-12-14] MEDS ORDERED: MELATONIN 5 MG TABLETS PO PRN (22:00)
[2017-12-14] MEDS: BUDESONIDE/FORMETEROL FUMARATE 80/4.5 mcg INHALER IH SCH (22:29)
[2017-12-14] MEDS: THIAMINE HCL 100 MG TABLET (FP) PO SCH (22:29)
[2017-12-15] MEDS: chlordiazePOXIDE HCL 25 MG CAPSULE PO SCH ×4 (06:34→22:46)
[2017-12-15 10:01] LABS: HEMOGLOBIN 11.2 GM/dL (10.7-15.3); MCH 29.5 pg (25.7-33.7); MCHC 32.8 g/dl (32.0-36.0); MEAN CELL VOLUME 89.8 fl (80-96); MEAN PLT VOLUME 7.1 fl (7.5-11.1); PLATELET COUNT 362 K/MM3 (134-434); RBC 3.79 M/mm3 (3.60-5.2); RDW 17.2 % (11.6-15.6); WHITE BLOOD COUNT 4.2 K/mm3 (4.0-10.0)
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
[2017-12-15 10:49] LABS: ALBUMIN 3.1 g/dl (3.4-5.0); ALK PHOS 48 U/L (45-117); ANION GAP 11 MMOL/L (8-16); BILIRUBIN,TOTAL 0.2 mg/dL (0.2-1); BLOOD UREA NITROGEN 12 mg/dL (7-18); CALCIUM 9.4 mg/dL (8.5-10.1); CHLORIDE 107 mmol/L (98-107); CO2 22 mmol/L (21-32); CREATININE 0.6 mg/dL (0.55-1.3); GLUCOSE,RANDOM 103 mg/dL (74-106); POTASSIUM 4.1 mmol/L (3.5-5.1); SGOT/AST 16 U/L (15-37); SGPT/ALT 17 U/L (13-61); SODIUM 141 mmol/L (136-145); TOT PROT 7.7 g/dl (6.4-8.2)
[2017-12-15] MEDS: PRENATAL VITAMINS W/ FOLIC ACID TABLET (FP) PO SCH (11:02)
[2017-12-15] MEDS: BUDESONIDE/FORMETEROL FUMARATE 80/4.5 mcg INHALER IH SCH ×2 (11:02→22:46)
[2017-12-15] MEDS: NICOTINE 21 MG/24 HOURS TOPICAL PATCH TD SCH (11:04)
--- NOTE | 2017-12-15 11:45 | EKG ---
Test Reason : Blood Pressure : / mmHG Vent. Rate : 090 BPM Atrial Rate : 090 BPM P-R Int : 144 ms QRS Dur : 066 ms QT Int : 354 ms P-R-T Axes : 075 076 078 degrees QTc Int : 433 ms NORMAL SINUS RHYTHM NORMAL ECG WHEN COMPARED WITH ECG OF 10-SEP-2017 09:30, NO SIGNIFICANT CHANGE WAS FOUND Confirmed by AALIYAH TOVAR MD ([id number]) on 12/15/2017 11:44:57 AM Referred By: Confirmed By:AALIYAH TOVAR MD
[2017-12-15 11:54] LABS: RPR REACTIVE 1:1 (NONREACTIVE)
[2017-12-15] MEDS ORDERED: FLU VACCINE QUAD 60 MCG/0.5 ML (MDV 18-19) IM ONE (12:00)
--- NOTE | 2017-12-15 13:55 | PN ---
S CIWA - CIWA Score Nausea/Vomitin-Mild Nausea/No Vomiting Muscle Tremors: 4-Moderate,w/Arms Extend Anxiety: 3 Agitation: 2 Paroxysmal Sweats: 1-Minimal Palms Moist Orientation: 0-Oriented Tacttile Disturbances: 1-Very Mild Itch/Numbness Auditory Disturbances: 0-None Visual Disturbances: 0-None Headache: 1-Very Mild CIWA-Ar Total Score: 13 BHS Progress Note (SOAP) Subjective: sweat tremor anxiety agitation Objective: 12/15/17 13:55 Vital Signs Temperature 98.4 F 12/15/17 13:11 Pulse Rate 104 H 12/15/17 13:11 Respiratory Rate 18 12/15/17 13:11 Blood Pressure 137/94 12/15/17 13:11 O2 Sat by Pulse Oximetry (%) Laboratory Last Values WBC 4.2 K/mm3 (4.0-10.0) 12/15/17 07:30 RBC 3.79 M/mm3 (3.60-5.2) 12/15/17 07:30 Hgb 11.2 GM/dL (10.7-15.3) 12/15/17 07:30 Hct 34.0 % (32.4-45.2) 12/15/17 07:30 MCV 89.8 fl (80-96) 12/15/17 07:30 MCH 29.5 pg (25.7-33.7) 12/15/17 07:30 MCHC 32.8 g/dl (32.0-36.0) 12/15/17 07:30 RDW 17.2 % (11.6-15.6) H 12/15/17 07:30 Plt Count 362 K/MM3 (134-434) 12/15/17 07:30 MPV 7.1 fl (7.5-11.1) L 12/15/17 07:30 Sodium 141 mmol/L (136-145) 12/15/17 07:30 Potassium 4.1 mmol/L (3.5-5.1) 12/15/17 07:30 Chloride 107 mmol/L (98-107) 12/15/17 07:30 Carbon Dioxide 22 mmol/L (21-32) 12/15/17 07:30 Anion Gap 11 MMOL/L (8-16) 12/15/17 07:30 BUN 12 mg/dL (7-18) 12/15/17 07:30 Creatinine 0.6 mg/dL (0.55-1.3) 12/15/17 07:30 Creat Clearance w eGFR > 60 (>60) 12/15/17 07:30 Random Glucose 103 mg/dL (74-106) 12/15/17 07:30 Calcium 9.4 mg/dL (8.5-10.1) 12/15/17 07:30 Total Bilirubin 0.2 mg/dL (0.2-1) 12/15/17 07:30 AST 16 U/L (15-37) 12/15/17 07:30 ALT 17 U/L (13-61) 12/15/17 07:30 Alkaline Phosphatase 48 U/L (45-117) 12/15/17 07:30 Total Protein 7.7 g/dl (6.4-8.2) 12/15/17 07:30 Albumin 3.1 g/dl (3.4-5.0) L 12/15/17 07:30 RPR Titer Reactive 1:1 (NONREACTIVE) H D 12/15/17 07:30 lab noted Assessment: 12/15/17 13:55 withdrawal sx Plan: continue detox
[2017-12-15 14:30] LABS: TREPONEMA ANTIBODY REACTIVE (NONREACTIVE)
[2017-12-15] MEDS: THIAMINE HCL 100 MG TABLET (FP) PO SCH (22:47)
[2017-12-16] MEDS: chlordiazePOXIDE HCL 25 MG CAPSULE PO SCH ×2 (06:13→10:43)
[2017-12-16 09:19] VITALS: BP 126/74; PULSE 126; TEMP 98.1
[2017-12-16] MEDS: NICOTINE 21 MG/24 HOURS TOPICAL PATCH TD SCH (10:44)
[2017-12-16] MEDS: PRENATAL VITAMINS W/ FOLIC ACID TABLET (FP) PO SCH (10:44)
[2017-12-16] MEDS: BUDESONIDE/FORMETEROL FUMARATE 80/4.5 mcg INHALER IH SCH (10:44)
--- NOTE | 2017-12-16 11:00 | PN ---
[facility] CIWA - CIWA Score Nausea/Vomitin-No Nausea/No Vomiting Muscle Tremors: 1-None Visible, but [place] Anxiety: 3 Agitation: 4-Moderately Restless Paroxysmal Sweats: 2 Orientation: 0-Oriented Tacttile Disturbances: 0-None Auditory Disturbances: 0-None Visual Disturbances: 0-None Headache: 0-None Present CIWA-Ar Total Score: 10 S Progress Note (SOAP) Subjective: interrupted sleep, anxious, fatigue, chills Objective: 12/16/17 11:00 Vital Signs Temperature 98.1 F 12/16/17 09:18 Pulse Rate 126 H 12/16/17 09:18 Respiratory Rate 20 12/16/17 09:18 Blood Pressure 126/74 12/16/17 09:18 O2 Sat by Pulse Oximetry (%) Laboratory Last Values WBC 4.2 K/mm3 (4.0-10.0) 12/15/17 07:30 RBC 3.79 M/mm3 (3.60-5.2) 12/15/17 07:30 Hgb 11.2 GM/dL (10.7-15.3) 12/15/17 07:30 Hct 34.0 % (32.4-45.2) 12/15/17 07:30 MCV 89.8 fl (80-96) 12/15/17 07:30 MCH 29.5 pg (25.7-33.7) 12/15/17 07:30 MCHC 32.8 g/dl (32.0-36.0) 12/15/17 07:30 RDW 17.2 % (11.6-15.6) H 12/15/17 07:30 Plt Count 362 K/MM3 (134-434) 12/15/17 07:30 MPV 7.1 fl (7.5-11.1) L 12/15/17 07:30 Sodium 141 mmol/L (136-145) 12/15/17 07:30 Potassium 4.1 mmol/L (3.5-5.1) 12/15/17 07:30 Chloride 107 mmol/L (98-107) 12/15/17 07:30 Carbon Dioxide 22 mmol/L (21-32) 12/15/17 07:30 Anion Gap 11 MMOL/L (8-16) 12/15/17 07:30 BUN 12 mg/dL (7-18) 12/15/17 07:30 Creatinine 0.6 mg/dL (0.55-1.3) 12/15/17 07:30 Creat Clearance w eGFR > 60 (>60) 12/15/17 07:30 Random Glucose 103 mg/dL (74-106) 12/15/17 07:30 Calcium 9.4 mg/dL (8.5-10.1) 12/15/17 07:30 Total Bilirubin 0.2 mg/dL (0.2-1) 12/15/17 07:30 AST 16 U/L (15-37) 12/15/17 07:30 ALT 17 U/L (13-61) 12/15/17 07:30 Alkaline Phosphatase 48 U/L (45-117) 12/15/17 07:30 Total Protein 7.7 g/dl (6.4-8.2) 12/15/17 07:30 Albumin 3.1 g/dl (3.4-5.0) L 12/15/17 07:30 RPR Titer Reactive 1:1 (NONREACTIVE) H D 12/15/17 07:30 T.pallidum Ab (MHA) Reactive (NONREACTIVE) 12/15/17 07:30 Assessment: 12/16/17 13:38 Aox3, no distress, anxious, pacing no adventitious breath sounds full ROM ambulating in the unit independently Plan: increase fluids continue detox continue to monitor
--- NOTE | 2017-12-16 13:03 | DS ---
[facility] Detox Discharge Summary Admission Date: 12/14/17 Discharge Date: 12/16/17 - History Present History: Alcohol Dependence, Cocaine Dependence Pertinent Past History: Vital Signs Temperature 98.1 F 12/16/17 09:18 Pulse Rate 126 H 12/16/17 09:18 Respiratory Rate 20 12/16/17 09:18 Blood Pressure 126/74 12/16/17 09:18 O2 Sat by Pulse Oximetry (%) Laboratory Last Values WBC 4.2 K/mm3 (4.0-10.0) 12/15/17 07:30 RBC 3.79 M/mm3 (3.60-5.2) 12/15/17 07:30 Hgb 11.2 GM/dL (10.7-15.3) 12/15/17 07:30 Hct 34.0 % (32.4-45.2) 12/15/17 07:30 MCV 89.8 fl (80-96) 12/15/17 07:30 MCH 29.5 pg (25.7-33.7) 12/15/17 07:30 MCHC 32.8 g/dl (32.0-36.0) 12/15/17 07:30 RDW 17.2 % (11.6-15.6) H 12/15/17 07:30 Plt Count 362 K/MM3 (134-434) 12/15/17 07:30 MPV 7.1 fl (7.5-11.1) L 12/15/17 07:30 Sodium 141 mmol/L (136-145) 12/15/17 07:30 Potassium 4.1 mmol/L (3.5-5.1) 12/15/17 07:30 Chloride 107 mmol/L (98-107) 12/15/17 07:30 Carbon Dioxide 22 mmol/L (21-32) 12/15/17 07:30 Anion Gap 11 MMOL/L (8-16) 12/15/17 07:30 BUN 12 mg/dL (7-18) 12/15/17 07:30 Creatinine 0.6 mg/dL (0.55-1.3) 12/15/17 07:30 Creat Clearance w eGFR > 60 (>60) 12/15/17 07:30 Random Glucose 103 mg/dL (74-106) 12/15/17 07:30 Calcium 9.4 mg/dL (8.5-10.1) 12/15/17 07:30 Total Bilirubin 0.2 mg/dL (0.2-1) 12/15/17 07:30 AST 16 U/L (15-37) 12/15/17 07:30 ALT 17 U/L (13-61) 12/15/17 07:30 Alkaline Phosphatase 48 U/L (45-117) 12/15/17 07:30 Total Protein 7.7 g/dl (6.4-8.2) 12/15/17 07:30 Albumin 3.1 g/dl (3.4-5.0) L 12/15/17 07:30 RPR Titer Reactive 1:1 (NONREACTIVE) H D 12/15/17 07:30 T.pallidum Ab (MHA) Reactive (NONREACTIVE) 12/15/17 07:30 - Physical Exam Results Vital Signs: Vital Signs Temperature 98.1 F 12/16/17 09:18 Pulse Rate 126 H 12/16/17 09:18 Respiratory Rate 20 12/16/17 09:18 Blood Pressure 126/74 12/16/17 09:18 O2 Sat by Pulse Oximetry (%) - Medication Discharge Medications: Ambulatory Orders Elviteg/Cob/Emtri/Tenof Alafen [Genvoya Tablet] 1 each PO DAILY 09/09/17 Multivitamins [Multivit ([facility] Formulary)] 1 tab PO DAILY 09/09/17 Albuterol Sulfate Inhaler - [Ventolin Hfa Inhaler -] 2 inh PO Q4H PRN 09/20/17 Fluticasone/Salmeterol [Advair 250-50 Diskus] 1 each IH BID 12/14/17 - Diagnosis (1) Alcohol dependence with withdrawal Current Visit: Yes Status: Acute Qualifiers: Complication of substance-induced condition: uncomplicated Qualified Code(s ): F10.230 - Alcohol dependence with withdrawal, uncomplicated (2) Cannabis dependence Current Visit: Yes Status: Chronic (3) Nicotine dependence Current Visit: No Status: Acute Qualifiers: Nicotine product type: cigarettes Substance use status: in withdrawal Qualified Code(s): F17.213 - Nicotine dependence, cigarettes, with withdrawal (4) HIV (human immunodeficiency virus infection) Current Visit: Yes Status: Chronic - AMA Did Patient Leave Against Medical Advice: Yes
[2017-12-16 14:29] LABS: URINE APPEARANCE CLEAR; URINE BILIRUBIN NEGATIVE (<2.0 mg/dL); URINE COLOR LTYELLOW; URINE GLUCOSE (UA) NEGATIVE (NEGATIVE); URINE KETONE NEGATIVE (NEGATIVE); URINE LEUK ESTERASE NEGATIVE (NEGATIVE); URINE NITRITE NEGATIVE (NEGATIVE); URINE PROTEIN NEGATIVE (NEGATIVE); URINE UROBILINOGEN NEGATIVE mg/dL (0.2-1.0)
[2017-12-16] MEDS ORDERED: chlordiazePOXIDE 5 MG CAPSULE PO SCH (17:00)
[2017-12-17] MEDS ORDERED: chlordiazePOXIDE HCL 10 MG CAPSULE PO SCH (17:00)
== END 2017-12-16 13:30 | disposition left against medical advice (07) | DRG 770 ==
LOC: YASAS 12:02 → Y6N 15:20
PROC: HZ2ZZZZ Detoxification Services for Substance Abuse Treatment (ICD-10-PCS; principal; 2017-12-14)
DX: F10.230 Alcohol dependence with withdrawal, uncomplicated (principal); F14.20 Cocaine dependence, uncomplicated; F12.20 Cannabis dependence, uncomplicated; F17.213 Nicotine dependence, cigarettes, with withdrawal; F19.24 Other psychoactive substance dependence with psychoactive substance-induced mood disorder; F41.8 Other specified anxiety disorders; Z21 Asymptomatic human immunodeficiency virus [HIV] infection status; J45.20 Mild intermittent asthma, uncomplicated; R63.4 Abnormal weight loss; Z68.1 Body mass index [BMI] 19.9 or less, adult
CPT/HCPCS: 36415; 80053; 81003; 85027; 86593; 86780; 90688; 93005; 93010; G0008

== ENCOUNTER 2018-08-06 19:13 | Inpatient (IN) | payer OTHER ==
--- NOTE | 2018-08-06 21:43 | HP ---
COWS - Scale Resting Pulse: 2= CT 101-120 Sweatin=Flushed/Facial Moisture Restless Observation: 1= Difficult to Sit Still Pupil Size: 1= Pupils >than Normal Bone or Joint Aches: 2= Severe Diffuse Aches Runny Nose/ Eye Tearin= Runny Nose/Eyes GI Upset > 30mins: 2= Nausea/Diarrhea Tremor Observation: 2= Slight Tremor Visible Yawning Observation: 1= 1-2x During Session Anxiety or Irritability: 1=Feels Anxious/Irritable Goose Flesh Skin: 0=Smooth Skin COWS Score: 16 CIWA Score Nausea/Vomitin Muscle Tremors: 3 Anxiety: 2 Agitation: 2 Paroxysmal Sweats: 2 Orientation: 0-Oriented Tacttile Disturbances: 2-Mild Itch/Numbness/Burn Auditory Disturbances: 2-Mild Harshness/Frighten Visual Disturbances: 2-Mild Sensitivity Headache: 2-Mild CIWA-Ar Total Score: 19 - Admission Criteria [facility]ASAS Guidelines: Admission for Medically Managed Detox: Requires at least one of the followin. CIWA greater than 12 2. Seizures within the past 24 hours 3. Delirium tremens within the past 24 hours 4. Hallucinations within the past 24 hours 5. Acute intervention needed for co occurring medical disorder 6. Acute intervention needed for co occurring psychiatric disorder 7. Severe withdrawal that cannot be handled at a lower level of care (continued vomiting, continued diarrhea, abnormal vital signs) requiring intravenous medication and/or fluids 8. Admission ROS S - HPI Chief Complaint: DEPENDENT ON HEROIN, ETOH, COCAINE AND MARIJUANA Allergies/Adverse Reactions: Allergies Allergy/AdvReac Type Severity Reaction Status Date / Time No Known Allergies Allergy Verified 12/14/17 14:40 History of Present Illness: THE PT. IS REQUESTING ADMISSION TO THE DETOX UNIT AND CAME FOR MEDICAL CLEARANCE AND H & PE - Ebola screening Have you traveled outside of the country in the last 21 days: No Have you had contact with anyone from an Ebola affected area: No Have you been sick,other than usual withdrawal symptoms: No Do you have a fever: No - Review of Systems Constitutional: See HPI, Loss of Appetite, Malaise, Weakness, Unintentional Wgt. Loss, Unexplained wgt Loss EENT: reports: See HPI, Nose Congestion Respiratory: reports: See HPI Cardiac: reports: See HPI GI: reports: See HPI, Nausea, Poor Appetite, Poor Fluid Intake, Vomiting, Indigestion, Abdominal cramping : reports: No Symptoms Reported, See HPI Musculoskeletal: reports: See HPI, Muscle Pain, Muscle Weakness Integumentary: reports: See HPI, Erythema, Flushing, Sweating Neuro: reports: See HPI, Headache, Tremors, Weakness Endocrine: reports: See HPI Hematology: reports: See HPI Psychiatric: reports: Judgement Intact, Orientated x3, Anxious, Depressed Patient History - Patient Medical History Hx Anemia: No Hx Asthma: Yes (on albuterol inhaler) Hx Chronic Obstructive Pulmonary Disease (COPD): No Hx Cancer: No Hx Cardiac Disorders: No Hx Congestive Heart Failure: No Hx Hypertension: No Hx Hypercholesterolemia: No Hx Pacemaker: No HX Cerebrovascular Accident: No Hx Seizures: No Hx Dementia: No Hx Diabetes: No Hx Gastrointestinal Disorders: No Hx Liver Disease: No Hx Genitourinary Disorders: No Hx Sexually Transmitted Disorders: No Hx Renal Disease (ESRD): No Hx Thyroid Disease: No Hx Human Immunodeficiency Virus (HIV): Yes (HIV +since 2008) Hx Hepatitis C: No Hx Depression: Yes (anxiety) Hx Suicide Attempt: No Hx Bipolar Disorder: No Hx Schizophrenia: No Other Medical History: INSOMNIA - Patient Surgical History Past Surgical History: No - PPD History Date: 09/11/17 Results: 0 MM - Reproductive History Patient is a Female of Child Bearing Age (11 -55 yrs old): Yes Last Menstrual Period: 11/27/17 Patient : No - Smoking Cessation Smoking history: Current every day smoker Have you smoked in the past 12 months: Yes Aproximately how many cigarettes per day: 10 Hx Chewing Tobacco Use: No Initiated information on smoking cessation: Yes 'Breaking Loose' booklet given: 08/06/18 - Substance & Tx. History Hx Alcohol Use: Yes Hx Substance Use: Yes Substance Use Type: Alcohol, Cocaine, Heroin, Marijuana Hx Substance Use Treatment: Yes - Substances abused Alcohol Substance route: Oral Frequency: Daily Amount used: BEER 2X6 PKS/LIQUOR 1 QT/D Age of first use: 12 Date of last use: 08/05/18 Heroin Substance route: Inhalation Frequency: Daily Amount used: 6 Age of first use: 43 Date of last use: 08/06/18 Cocaine Substance route: Smoking Frequency: Daily Amount used: $20/D Age of first use: 15 Date of last use: 08/06/18 Marijuana/Hashish Substance route: Smoking Frequency: Daily Amount used: $50/D Age of first use: 12 Date of last use: 08/06/18 Family Disease History - Family Disease History Family Disease History: Heart Disease: Mother (alive, HTN, Stroke ), Other: Mother Admission Physical Exam [facility] - Physical General Appearance: Yes: No Apparent Distress, Appropriately Dressed, Cachetic, Tremorous, Sweating, Anxious HEENTM: Yes: Hearing grossly Normal, Normocephalic, Normal Voice, MANDY, Pharynx Normal Respiratory: Yes: Chest Non-Tender, Lungs Clear, Normal Breath Sounds, No Respiratory Distress, No Accessory Muscle Use Neck: Yes: No masses,lesions,Nodules, Supple, Trachea in good position Breast: Yes: Breast Exam Deferred, Axillae without masses Cardiology: Yes: Regular Rhythm, S1, S2, Tachycardia Abdominal: Yes: Normal Bowel Sounds, Non Tender, Flat Back: Yes: Normal Inspection Musculoskeletal: Yes: full range of Motion, Muscle Pain, Muscle weakness Extremities: Yes: Normal Capillary Refill, Normal Range of Motion, Non-Tender, Tremors 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 NML intact, Fully Oriented, Alert, Motor Strength 5/5, Normal Response, Depressed Affect Integumentary: Yes: Normal Color, Warm, Moist Lymphatic: Yes: Within Normal Limits - Diagnostic (1) Anxiety and depression Current Visit: Yes Status: Chronic (2) Alcohol dependence with withdrawal Current Visit: No Status: Chronic Qualifiers: Complication of substance-induced condition: uncomplicated Qualified Code(s ): F10.230 - Alcohol dependence with withdrawal, uncomplicated (3) Heroin abuse Current Visit: No Status: Chronic (4) Insomnia Current Visit: No Status: Chronic Qualifiers: Insomnia type: unspecified Qualified Code(s): G47.00 - Insomnia, unspecified (5) Nicotine dependence Current Visit: No Status: Chronic Qualifiers: Nicotine product type: cigarettes Substance use status: in withdrawal Qualified Code(s): F17.213 - Nicotine dependence, cigarettes, with withdrawal (6) Weight decreased Current Visit: No Status: Chronic (7) Asthma Current Visit: No Status: Chronic Qualifiers: Asthma severity: mild Asthma persistence: intermittent Asthma complication type: unspecified Qualified Code(s): J45.20 - Mild intermittent asthma, uncomplicated (8) Cannabis dependence Current Visit: No Status: Chronic (9) Cocaine dependence Current Visit: No Status: Chronic Qualifiers: Substance use status: uncomplicated Qualified Code(s): F14.20 - Cocaine dependence, uncomplicated (10) HIV (human immunodeficiency virus infection) Current Visit: No Status: Chronic Cleared for Admission [facility] - Detox or Rehab [facility] Level of Care: Medically Supervised Detox Regimen/Protocol: Methadone/Librium Breathalyzer - Breathalyzer Breathalyzer: 0 Urine Drug Screen - Test Device Lot number: [id number] Expiration date: 06/19/19 - Control Is test valid?: Yes - Results Drug screen NEGATIVE: No Urine drug screen results: KERRY-Cocaine, MOP-Opiates, OXY-Oxycodone Inpatient Rehab Admission - Rehab Decision to Admit Inpatient rehab admission?: No
[2018-08-06] MEDS ORDERED: MELATONIN 5 MG TABLETS PO PRN (21:51)
[2018-08-06] MEDS ORDERED: MAGNESIUM CITRATE 300 ML BOTTLE PO PRN (21:51)
[2018-08-06] MEDS ORDERED: ACETAMINOPHEN 325 MG TABLET (FP) PO PRN ×2 (21:51)
[2018-08-06] MEDS ORDERED: BISMUTH SUBSALICYLATE 524 MG/30 ML UD PO PRN (21:51)
[2018-08-06] MEDS ORDERED: hydrOXYzine PAMOATE 25 MG CAPSULE (FP) PO PRN (21:51)
[2018-08-06] MEDS ORDERED: METHOCARBAMOL 500 MG TABLET PO PRN (21:51)
[2018-08-06] MEDS ORDERED: MAG HYDROX/AL HYDROX/SIMETH 30 ML UNIT-DOSE CUP PO PRN (21:51)
[2018-08-06] MEDS ORDERED: chlordiazePOXIDE HCL 10 MG CAPSULE PO PRN (21:51)
[2018-08-06] MEDS ORDERED: MAGNESIUM HYDROX 2400MG/30ML ORAL SUSPENSION 30 ML CUP PO PRN (21:51)
[2018-08-06] MEDS ORDERED: MENTHOL/PHENOL 1 EACH UD MM PRN (21:51)
[2018-08-06] MEDS ORDERED: cloNIDine HCL 0.1 MG TABLET PO PRN (21:51)
[2018-08-06] MEDS ORDERED: NICOTINE POLACRILEX 2 MG GUM BUC PRN (21:51)
[2018-08-06] MEDS ORDERED: ALBUTEROL SO4 8 GM HFA INHALER IH PRN (21:55)
[2018-08-06] MEDS ORDERED: METHADONE HCL 10 MG TABLET (FOR DETOX USE ONLY) PO ONE ×2 (23:00→23:15)
[2018-08-06] MEDS ORDERED: chlordiazePOXIDE HCL 25 MG CAPSULE PO ONE (23:15)
[2018-08-06 23:58] VITALS: BMI 16.8
[2018-08-07] MEDS ORDERED: chlordiazePOXIDE HCL 25 MG CAPSULE PO ONE (01:45)
[2018-08-07] MEDS ORDERED: METHADONE HCL 10 MG TABLET (FOR DETOX USE ONLY) PO ONE (01:45)
[2018-08-07] MEDS: chlordiazePOXIDE HCL 25 MG CAPSULE PO SCH ×3 (01:51→13:20)
[2018-08-07] MEDS: THIAMINE HCL 100 MG TABLET (FP) PO SCH ×2 (01:52→22:13)
[2018-08-07] MEDS: BUDESONIDE/FORMETEROL FUMARATE 80/4.5 mcg INHALER IH SCH ×3 (01:53→22:13)
[2018-08-07] MEDS ORDERED: METHADONE HCL 5 MG TABLET (FOR DETOX USE ONLY) PO ONE (10:00)
[2018-08-07 10:22] LABS: ALBUMIN 2.5 g/dl (3.4-5.0); BILIRUBIN,TOTAL 0.3 mg/dL (0.2-1); CALCIUM 8.5 mg/dL (8.5-10.1); CREATININE 0.6 mg/dL (0.55-1.3); POTASSIUM 3.9 mmol/L (3.5-5.1); TOT PROT 7.3 g/dl (6.4-8.2)
[2018-08-07 10:29] LABS: HEMATOCRIT 26.5 % (32.4-45.2); HEMOGLOBIN 9.2 GM/dL (10.7-15.3); MCH 30.6 pg (25.7-33.7); MCHC 34.7 g/dl (32.0-36.0); MEAN CELL VOLUME 88.4 fl (80-96); MEAN PLT VOLUME 6.9 fl (7.5-11.1); PLATELET COUNT 566 K/MM3 (134-434)
[2018-08-07] MEDS: PRENATAL VITAMINS W/ FOLIC ACID TABLET (FP) PO SCH (10:43)
[2018-08-07] MEDS: NICOTINE 14 MG/24 HOURS TOPICAL PATCH TD SCH (10:43)
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
[2018-08-07 12:16] LABS: RPR REACTIVE 1:1 (NONREACTIVE)
[2018-08-07 12:18] LABS: TREPONEMA ANTIBODY PREVIOUSLY REACTIVE (NONREACTIVE)
--- NOTE | 2018-08-07 17:36 | PN ---
[facility] CIWA - CIWA Score Nausea/Vomitin-Mild Nausea/No Vomiting Muscle Tremors: 4-Moderate,w/Arms Extend Anxiety: 3 Agitation: 3 Paroxysmal Sweats: 3 Orientation: 0-Oriented Tacttile Disturbances: 0-None Auditory Disturbances: 0-None Visual Disturbances: 0-None Headache: 0-None Present CIWA-Ar Total Score: 14 S COWS - Scale Resting Pulse: 4= CA > 121 Sweatin= Chills/Flushing Restless Observation: 3= Extraneous Movement Pupil Size: 0= Normal to Room Light Bone or Joint Aches: 2= Severe Diffuse Aches Runny Nose/ Eye Tearin= Runny Nose/Eyes GI Upset > 30mins: 2= Nausea/Diarrhea Tremor Observation of Outstretched Hands: 2= Slight Tremor Visible Yawning Observation: 0= None Anxiety or Irritability: 2=Irritable/Anxious Goose Flesh Skin: 0=Smooth Skin COWS Score: 18 S Progress Note (SOAP) Subjective: Stomachache, sweating, diarrhea, anxious Objective: 08/07/18 17:33 Last Vital Signs Temp Pulse Resp BP Pulse Ox 98.8 F 122 H 18 100/65 08/07/18 14:28 08/07/18 14:28 08/07/18 14:28 08/07/18 14:28 Laboratory Tests 08/07/18 08/07/18 08/07/18 07:50 07:50 07:50 WBC 7.0 RBC 3.00 L Hgb 9.2 L Hct 26.5 L D MCV 88.4 MCH 30.6 MCHC 34.7 RDW 15.0 D Plt Count 566 H D MPV 6.9 L Sodium 131 L Potassium 3.9 Chloride 96 L Carbon Dioxide 29 Anion Gap 7 L BUN 9 Creatinine 0.6 Est GFR (CKD-EPI)AfAm 123.18 Est GFR (CKD-EPI)NonAf 106.28 Random Glucose 95 Calcium 8.5 Total Bilirubin 0.3 AST 22 ALT 8 L Alkaline Phosphatase 68 Total Protein 7.3 Albumin 2.5 L RPR Titer Reactive 1:1 H T.pallidum Ab (MHA) Previously reactive Labs reviewed: Na 131, abnormal CBC Assessment: 08/07/18 17:35 Withdrawal symptoms Noted with hyponatremia and abnormal CBC Plan: Continue detox Encouraged PO water hydration Hyponatremia: mild, avoid over-hydrating (no more than 1-2 pitchers of water daily) Abnormal CBC: repeat CBC in AM
[2018-08-07] MEDS ORDERED: guaiFENesin/D-METHORPHAN HB 10 ML UNIT-DOSE CUPS PO PRN (18:13)
[2018-08-07] MEDS: chlordiazePOXIDE 5 MG CAPSULE PO SCH (22:13)
[2018-08-07] MEDS: QUEtiapine FUMARATE 25 MG TABLET (FP) PO SCH (22:13)
[2018-08-08] MEDS: chlordiazePOXIDE 5 MG CAPSULE PO SCH ×2 (06:00→13:16)
[2018-08-08] MEDS ORDERED: METHADONE HCL 10 MG TABLET (FOR DETOX USE ONLY) PO ONE (10:00)
[2018-08-08] MEDS: BUDESONIDE/FORMETEROL FUMARATE 80/4.5 mcg INHALER IH SCH ×2 (10:16→22:25)
[2018-08-08] MEDS: FLUoxetine HCL 10 MG CAPSULE (FP) PO SCH (10:17)
[2018-08-08] MEDS: PRENATAL VITAMINS W/ FOLIC ACID TABLET (FP) PO SCH (10:17)
[2018-08-08] MEDS: NICOTINE 14 MG/24 HOURS TOPICAL PATCH TD SCH (10:27)
--- NOTE | 2018-08-08 11:37 | PN ---
[facility] CIWA - CIWA Score Nausea/Vomitin-No Nausea/No Vomiting Muscle Tremors: 4-Moderate,w/Arms Extend Anxiety: 3 Agitation: 3 Paroxysmal Sweats: 2 Orientation: 0-Oriented Tacttile Disturbances: 0-None Auditory Disturbances: 0-None Visual Disturbances: 0-None Headache: 0-None Present CIWA-Ar Total Score: 12 S COWS - Scale Resting Pulse: 0= [place] 80 or Below Sweatin=Flushed/Facial Moisture Restless Observation: 1= Difficult to Sit Still Pupil Size: 0= Normal to Room Light Bone or Joint Aches: 1= Mild Discomfort Runny Nose/ Eye Tearin= Nasal Congestion GI Upset > 30mins: 1= Stomach Cramp Tremor Observation of Outstretched Hands: 1= Tremor [place], Not Seen Yawning Observation: 1= 1-2x During Session Anxiety or Irritability: 1=Feels Anxious/Irritable Goose Flesh Skin: 0=Smooth Skin COWS Score: 9 [facility] Progress Note (SOAP) Subjective: sweats anxiety shakes interrupted sleep body aches Objective: 08/08/18 11:36 Vital Signs Temperature 98.1 F 08/08/18 09:39 Pulse Rate 93 H 08/08/18 09:39 Respiratory Rate 18 08/08/18 09:39 Blood Pressure 105/70 08/08/18 09:39 O2 Sat by Pulse Oximetry (%) Laboratory Tests 08/06/18 08/07/18 08/07/18 20:51 07:50 07:50 WBC 7.0 RBC 3.00 L Hgb 9.2 L Hct 26.5 L D MCV 88.4 MCH 30.6 MCHC 34.7 RDW 15.0 D Plt Count 566 H D MPV 6.9 L Sodium 131 L Potassium 3.9 Chloride 96 L Carbon Dioxide 29 Anion Gap 7 L BUN 9 Creatinine 0.6 Est GFR (CKD-EPI)AfAm 123.18 Est GFR (CKD-EPI)NonAf 106.28 Random Glucose 95 Calcium 8.5 Total Bilirubin 0.3 AST 22 ALT 8 L Alkaline Phosphatase 68 Total Protein 7.3 Albumin 2.5 L POC Urine HCG, Qual Negative RPR Titer T.pallidum Ab (A) 08/07/18 07:50 WBC RBC Hgb Hct MCV MCH MCHC RDW Plt Count MPV Sodium Potassium Chloride Carbon Dioxide Anion Gap BUN Creatinine Est GFR (CKD-EPI)AfAm Est GFR (CKD-EPI)NonAf Random Glucose Calcium Total Bilirubin AST ALT Alkaline Phosphatase Total Protein Albumin POC Urine HCG, Qual RPR Titer Reactive 1:1 H T.pallidum Ab (A) Previously reactive labs noted pending repeated labs aaox3 ambulating no acute distress Assessment: 08/08/18 11:37 withdrawal sx Plan: continue detox increase fluids
--- NOTE | 2018-08-08 17:01 | PN ---
[facility] Progress Note Note: PATIENT REPORTS THAT SHE HAS NOT TAKEN PRESCRIPTION 'GENVOYA' FOR TREATMENT OF H.I.V. FOR APPROX. THE LAST TWO MONTHS. MEDICATION WILL NOT BE ORDERED FOR PATIENT WHILE SHE IS ADMITTED AT [facility] FOR DETOX. PATIENT VERBALIZED UNDERSTANDING. PATIENT ADVISED TO FOLLOW-UP WITH H.I.V. MEDICAL PROVIDER AFTER DISCHARGE FROM DETOX FOR FURTHER MEDICAL EVALUATION. PATIENT VERBALIZED UNDERSTANDING OF RECOMMENDATION. Anna TAY NP
[2018-08-08] MEDS: IBUPROFEN 400 MG TABLET (FP) PO PRN (17:54)
[2018-08-08] MEDS ORDERED: chlordiazePOXIDE HCL 10 MG CAPSULE PO PRN (21:00)
[2018-08-08] MEDS: QUEtiapine FUMARATE 25 MG TABLET (FP) PO SCH (22:25)
[2018-08-08] MEDS: chlordiazePOXIDE HCL 10 MG CAPSULE PO SCH (22:25)
[2018-08-08] MEDS: THIAMINE HCL 100 MG TABLET (FP) PO SCH (22:25)
[2018-08-08] MEDS: guaiFENesin 200 MG/10 ML 10 ML UNIT-DOSE CUPS PO PRN (22:39)
[2018-08-09] MEDS: chlordiazePOXIDE HCL 10 MG CAPSULE PO SCH ×3 (05:43→22:12)
[2018-08-09] MEDS: guaiFENesin 200 MG/10 ML 10 ML UNIT-DOSE CUPS PO PRN ×2 (05:45→19:09)
[2018-08-09] MEDS ORDERED: METHADONE HCL 5 MG TABLET (FOR DETOX USE ONLY) PO ONE (06:00)
[2018-08-09] MEDS: BUDESONIDE/FORMETEROL FUMARATE 80/4.5 mcg INHALER IH SCH ×2 (10:46→22:11)
[2018-08-09] MEDS: NICOTINE 14 MG/24 HOURS TOPICAL PATCH TD SCH (10:46)
[2018-08-09] MEDS: FLUoxetine HCL 10 MG CAPSULE (FP) PO SCH (10:47)
[2018-08-09] MEDS: PRENATAL VITAMINS W/ FOLIC ACID TABLET (FP) PO SCH (10:47)
--- NOTE | 2018-08-09 10:56 | PN ---
[facility] Progress Note (SOAP) Subjective: tired sweats Objective: 08/09/18 10:55 Vital Signs Temperature 101.8 F H 08/09/18 09:31 Pulse Rate 131 H 08/09/18 09:31 Respiratory Rate 20 08/09/18 09:31 Blood Pressure 133/95 08/09/18 09:31 O2 Sat by Pulse Oximetry (%) Laboratory Tests 08/06/18 08/07/18 08/07/18 20:51 07:50 07:50 WBC 7.0 RBC 3.00 L Hgb 9.2 L Hct 26.5 L D MCV 88.4 MCH 30.6 MCHC 34.7 RDW 15.0 D Plt Count 566 H D MPV 6.9 L Sodium 131 L Potassium 3.9 Chloride 96 L Carbon Dioxide 29 Anion Gap 7 L BUN 9 Creatinine 0.6 Est GFR (CKD-EPI)AfAm 123.18 Est GFR (CKD-EPI)NonAf 106.28 Random Glucose 95 Calcium 8.5 Total Bilirubin 0.3 AST 22 ALT 8 L Alkaline Phosphatase 68 Total Protein 7.3 Albumin 2.5 L POC Urine HCG, Qual Negative RPR Titer T.pallidum Ab (MHA) 08/07/18 07:50 WBC RBC Hgb Hct MCV MCH MCHC RDW Plt Count MPV Sodium Potassium Chloride Carbon Dioxide Anion Gap BUN Creatinine Est GFR (CKD-EPI)AfAm Est GFR (CKD-EPI)NonAf Random Glucose Calcium Total Bilirubin AST ALT Alkaline Phosphatase Total Protein Albumin POC Urine HCG, Qual RPR Titer Reactive 1:1 H T.pallidum Ab (MHA) Previously reactive aaox3 ambulating no acute distress temp noted 101.8; pt denies of any feeling of malaise. Assessment: 08/09/18 10:55 mild withdrawal sx Plan: continue detox increase fluids tylenol given temp now is 98.2 d/c in am
[2018-08-09] MEDS ORDERED: cloNIDine HCL 0.1 MG TABLET PO ONE (12:50)
[2018-08-09] MEDS: FERROUS SO4 325 MG TABLET (FP) PO SCH (17:42)
[2018-08-09] MEDS ORDERED: cloNIDine HCL 0.1 MG TABLET PO SCH (22:00)
[2018-08-09] MEDS: QUEtiapine FUMARATE 25 MG TABLET (FP) PO SCH (22:12)
[2018-08-09] MEDS: IBUPROFEN 400 MG TABLET (FP) PO PRN (22:12)
[2018-08-09] MEDS: THIAMINE HCL 100 MG TABLET (FP) PO SCH (22:44)
[2018-08-10] MEDS: FERROUS SO4 325 MG TABLET (FP) PO SCH (07:00)
--- NOTE | 2018-08-10 09:05 | DS ---
[facility] Detox Discharge Summary Admission Date: 08/06/18 Discharge Date: 08/10/18 - History Present History: Alcohol Dependence, Cannabis Dependence, Cocaine Dependence - Physical Exam Results Vital Signs: Vital Signs Temperature 98.1 F 08/10/18 07:51 Pulse Rate 92 H 08/10/18 07:51 Respiratory Rate 16 08/10/18 07:51 Blood Pressure 90/60 08/10/18 07:51 O2 Sat by Pulse Oximetry (%) - Treatment Hospital Course: Detox Protocol Followed, Detoxed Safely, Responded well, Discharged Condition Good, Rehab Referral Accepted - Diagnosis (1) Depression Current Visit: Yes Status: Acute (2) Anxiety and depression Current Visit: Yes Status: Chronic (3) Opioid dependence with withdrawal Current Visit: Yes Status: Chronic (4) Alcohol dependence with withdrawal Current Visit: Yes Status: Chronic Qualifiers: Complication of substance-induced condition: uncomplicated Qualified Code(s ): F10.230 - Alcohol dependence with withdrawal, uncomplicated (5) Asthma Current Visit: Yes Status: Chronic Qualifiers: Asthma severity: mild Asthma persistence: intermittent Asthma complication type: unspecified Qualified Code(s): J45.20 - Mild intermittent asthma, uncomplicated (6) Cannabis dependence Current Visit: Yes Status: Chronic (7) Cocaine dependence Current Visit: Yes Status: Chronic Qualifiers: Substance use status: uncomplicated Qualified Code(s): F14.20 - Cocaine dependence, uncomplicated (8) HIV (human immunodeficiency virus infection) Current Visit: Yes Status: Chronic Qualifiers: HIV symptom status: unspecified Qualified Code(s): B20 - Human immunodeficiency virus [HIV] disease (9) Insomnia Current Visit: No Status: Chronic Qualifiers: Insomnia type: unspecified Qualified Code(s): G47.00 - Insomnia, unspecified (10) Nicotine dependence Current Visit: Yes Status: Chronic Qualifiers: Nicotine product type: cigarettes Substance use status: uncomplicated Qualified Code(s): F17.210 - Nicotine dependence, cigarettes, uncomplicated (11) Substance induced mood disorder Current Visit: No Status: Suspected - AMA Did Patient Leave Against Medical Advice: No (pt referred to [facility]
[2018-08-10] MEDS: FLUoxetine HCL 10 MG CAPSULE (FP) PO SCH (10:37)
[2018-08-10] MEDS: BUDESONIDE/FORMETEROL FUMARATE 80/4.5 mcg INHALER IH SCH (10:37)
[2018-08-10] MEDS: PRENATAL VITAMINS W/ FOLIC ACID TABLET (FP) PO SCH (10:37)
[2018-08-10] MEDS: NICOTINE 14 MG/24 HOURS TOPICAL PATCH TD SCH (10:38)
[2018-08-10] MEDS: guaiFENesin 200 MG/10 ML 10 ML UNIT-DOSE CUPS PO PRN (10:41)
[2018-08-10 11:07] VITALS: BP 98/67; PULSE 115; TEMP 99.5
== END 2018-08-10 11:46 | disposition other institution (70) | DRG 773 ==
LOC: YASAS 19:13 → Y3N 22:58 → Y6N 23:42
PROVIDERS: ADMIT Surgery; ATTEND Surgery
PROC: HZ2ZZZZ Detoxification Services for Substance Abuse Treatment (ICD-10-PCS; principal; 2018-08-06)
DX: F11.23 Opioid dependence with withdrawal (principal); F10.230 Alcohol dependence with withdrawal, uncomplicated; F14.20 Cocaine dependence, uncomplicated; F12.20 Cannabis dependence, uncomplicated; F17.210 Nicotine dependence, cigarettes, uncomplicated; F19.24 Other psychoactive substance dependence with psychoactive substance-induced mood disorder; F41.8 Other specified anxiety disorders; F32.9 Major depressive disorder, single episode, unspecified; Z21 Asymptomatic human immunodeficiency virus [HIV] infection status; J45.20 Mild intermittent asthma, uncomplicated; E87.1 Hypo-osmolality and hyponatremia; G47.00 Insomnia, unspecified
CPT/HCPCS: 36415; 80053; 81025; 85027; 86593; 86780; J0735

== ENCOUNTER 2018-08-10 11:53 | Inpatient (IN) | payer OTHER ==
[2018-08-10] MEDS ORDERED: NICOTINE POLACRILEX 4 MG GUM BUC PRN (15:48)
[2018-08-10] MEDS ORDERED: IBUPROFEN 400 MG TABLET (FP) PO PRN (15:48)
[2018-08-10] MEDS ORDERED: MAGNESIUM HYDROX 2400MG/30ML ORAL SUSPENSION 30 ML CUP PO PRN (15:48)
[2018-08-10] MEDS ORDERED: MAG HYDROX/AL HYDROX/SIMETH 30 ML UNIT-DOSE CUP PO PRN (15:48)
[2018-08-10] MEDS ORDERED: P-EPHED 60MG/TRIPROLIDI 2.5MG TABLET PO PRN (15:48)
[2018-08-10] MEDS ORDERED: MAGNESIUM CITRATE 300 ML BOTTLE PO PRN (15:48)
[2018-08-10] MEDS ORDERED: hydrOXYzine PAMOATE 50 MG CAPSULE (FP) PO PRN (15:48)
[2018-08-10] MEDS ORDERED: MENTHOL/PHENOL 1 EACH UD MM PRN (15:48)
[2018-08-10] MEDS ORDERED: LOPERAMIDE HCL 2 MG CAPSULE PO PRN (15:48)
--- NOTE | 2018-08-10 15:48 | HP ---
[facility] Re[facility] Assess/Revision - Admission History Admitted to Rehab from: [address] - Vital signs Vital Signs: Vital Signs Period Temp Pulse Resp BP Sys/Carver Pulse Ox Last 24 Hr 98.1 F 122 16 92/70 - Findings Detox History & Physical reviewed: Yes Concur with findings: Yes Inpatient Rehab Admission - Rehab Decision to Admit Inpatient rehab admission?: Yes - Initial Determination Are CD services needed?: Yes Free of communicable disease: Yes Not in need of hospitalization: Yes - Rehab Admission Criteria Previous failed treatment: Yes Poor recovery environment: Yes Comorbidities: Yes Lacks judgement: Yes Patient is meeting Inpatient Rehab admission criteria:: Yes
[2018-08-10] MEDS: FERROUS SO4 325 MG TABLET (FP) PO SCH (17:30)
[2018-08-10] MEDS: QUEtiapine FUMARATE 25 MG TABLET (FP) PO SCH (21:23)
[2018-08-10] MEDS: THIAMINE HCL 100 MG TABLET (FP) PO SCH (21:23)
[2018-08-10] MEDS: BUDESONIDE/FORMETEROL FUMARATE 80/4.5 mcg INHALER IH SCH (21:24)
[2018-08-10] MEDS ORDERED: QUEtiapine FUMARATE 100 MG TABLET (FP) PO SCH (22:00)
[2018-08-11] MEDS: FERROUS SO4 325 MG TABLET (FP) PO SCH ×3 (07:03→17:59)
[2018-08-11] MEDS: FLUoxetine HCL 10 MG CAPSULE (FP) PO SCH (09:43)
[2018-08-11] MEDS: PRENATAL VITAMINS W/ FOLIC ACID TABLET (FP) PO SCH (09:43)
[2018-08-11] MEDS: NICOTINE 21 MG/24 HOURS TOPICAL PATCH TD SCH (09:43)
[2018-08-11] MEDS: guaiFENesin 200 MG/10 ML 10 ML UNIT-DOSE CUPS PO PRN ×2 (09:44→18:01)
[2018-08-11] MEDS ORDERED: FLUoxetine HCL 10 MG CAPSULE (FP) PO SCH (10:00)
[2018-08-11] MEDS: BUDESONIDE/FORMETEROL FUMARATE 80/4.5 mcg INHALER IH SCH ×2 (10:29→21:08)
--- NOTE | 2018-08-11 10:53 | PN ---
[facility] Progress Note (SOAP) Subjective: C/O THROAT PAIN AND WHITE COATED TONGUE. PT ALSO C/O PERINEAL BUMP AND PAIN. DENIES HX OF HEMORRHOIDS. DENIES CONSTIPATION OR DIARRHEA. Objective: 08/12/18 00:32 Vital Signs - 24 hr 08/11/18 08/11/18 03:30 07:25 Temperature 98.6 F Pulse Rate 99 H Respiratory 16 18 Rate Blood Pressure 110/77 Assessment: PT WAS EXAMINED BY THIS DRINK WAITER WITH NURSE KEATON IN THE ROOM TO ASSIST. 08/12/18 00:32 ORAL EXAM: WHITISH COATING ON TONGUE WITH PHARYNGEAL REDNESS. No SWELLING. NO VISIBLE BUMP ON PERINEAL AREA NOTED; AREA WAS WNL. 08/12/18 00:38 Plan: [facility] SUSPENSION 500,000 UNITS PO Q6H X 7 DAYS RE-EVALUATE AFTER 7DAYS D/W PT TO INFORM STAFF IF FURTHER SYMPTOMS OCCUR.
[2018-08-11] MEDS: NYSTATIN 500,000 UNITS/5 ML SUSPENSION PO SCH ×2 (12:40→18:00)
[2018-08-11] MEDS ORDERED: PT OWN MED DRAWER 7, Y5N ONE ×2 (13:05→20:20)
[2018-08-11] MEDS: ALBUTEROL SO4 8 GM HFA INHALER IH PRN (13:08)
[2018-08-11] MEDS: QUEtiapine FUMARATE 25 MG TABLET (FP) PO SCH (21:07)
[2018-08-11] MEDS: THIAMINE HCL 100 MG TABLET (FP) PO SCH (21:08)
[2018-08-12] MEDS: NYSTATIN 500,000 UNITS/5 ML SUSPENSION PO SCH ×5 (00:39→23:03)
[2018-08-12] MEDS: guaiFENesin 200 MG/10 ML 10 ML UNIT-DOSE CUPS PO PRN ×2 (06:43→21:43)
[2018-08-12] MEDS: ALBUTEROL SO4 2.5/IPRATROPIUM 0.5 INH SOL 3 ML VIAL.NEB. NEB PRN (06:44)
[2018-08-12] MEDS: FERROUS SO4 325 MG TABLET (FP) PO SCH ×3 (07:34→17:40)
[2018-08-12] MEDS ORDERED: PT OWN MED DRAWER 7, Y5N ONE ×2 (08:16→19:17)
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
[2018-08-12] MEDS: PRENATAL VITAMINS W/ FOLIC ACID TABLET (FP) PO SCH (09:56)
[2018-08-12] MEDS: NICOTINE 21 MG/24 HOURS TOPICAL PATCH TD SCH (09:56)
[2018-08-12] MEDS: FLUoxetine HCL 10 MG CAPSULE (FP) PO SCH (09:57)
[2018-08-12] MEDS: BUDESONIDE/FORMETEROL FUMARATE 80/4.5 mcg INHALER IH SCH ×2 (09:57→21:42)
[2018-08-12 16:11] LABS: HEMATOCRIT 28.7 % (32.4-45.2); HEMOGLOBIN 9.2 GM/dL (10.7-15.3); MCH 29.5 pg (25.7-33.7); MCHC 32.1 g/dl (32.0-36.0); MEAN CELL VOLUME 91.8 fl (80-96); MEAN PLT VOLUME 7.3 fl (7.5-11.1); PLATELET COUNT 563 K/MM3 (134-434); RBC 3.13 M/mm3 (3.60-5.2); RDW 15.8 % (11.6-15.6); WHITE BLOOD COUNT 6.8 K/mm3 (4.0-10.0)
[2018-08-12] MEDS: THIAMINE HCL 100 MG TABLET (FP) PO SCH (21:41)
[2018-08-12] MEDS: QUEtiapine FUMARATE 50 MG TABLET PO SCH (21:42)
[2018-08-12] MEDS: MELATONIN 5 MG TABLETS PO PRN (21:42)
[2018-08-13] MEDS: NYSTATIN 500,000 UNITS/5 ML SUSPENSION PO SCH ×3 (06:51→17:41)
[2018-08-13] MEDS: FERROUS SO4 325 MG TABLET (FP) PO SCH ×3 (08:20→17:41)
[2018-08-13] MEDS: PRENATAL VITAMINS W/ FOLIC ACID TABLET (FP) PO SCH (09:50)
[2018-08-13] MEDS: FLUoxetine HCL 10 MG CAPSULE (FP) PO SCH (09:50)
[2018-08-13] MEDS: NICOTINE 21 MG/24 HOURS TOPICAL PATCH TD SCH (09:51)
[2018-08-13] MEDS: BUDESONIDE/FORMETEROL FUMARATE 80/4.5 mcg INHALER IH SCH ×2 (09:51→21:46)
[2018-08-13] MEDS: ACETAMINOPHEN 325 MG TABLET (FP) PO PRN (09:53)
[2018-08-13] MEDS: guaiFENesin 200 MG/10 ML 10 ML UNIT-DOSE CUPS PO PRN (09:53)
[2018-08-13] MEDS ORDERED: PT OWN MED DRAWER 7, Y5N ONE (10:27)
[2018-08-13] MEDS: ALBUTEROL SO4 8 GM HFA INHALER IH PRN (11:36)
[2018-08-13 12:32] LABS: EPI CELLS 10.9 /HPF (0-5/HPF); HYALINE CASTS 21 /lpf (0-8); PH,URINE 6.5 (5.0-8.0); URINE APPEARANCE CLOUDY; URINE BACTERIA 381.3 /hpf (NEGATIVE); URINE BILIRUBIN NEGATIVE (NEGATIVE); URINE COLOR DK YELLOW; URINE GLUCOSE (UA) NEGATIVE (NEGATIVE); URINE KETONE TRACE (NEGATIVE); URINE LEUK ESTERASE 1+ (NEGATIVE); URINE NITRITE NEGATIVE (NEGATIVE); URINE PROTEIN 1+ (NEGATIVE); URINE RBC 3 /hpf (0-4); URINE WBC 18 /hpf (0-5)
[2018-08-13] MEDS: THIAMINE HCL 100 MG TABLET (FP) PO SCH (21:46)
[2018-08-13] MEDS: QUEtiapine FUMARATE 50 MG TABLET PO SCH (21:46)
[2018-08-14] MEDS: NYSTATIN 500,000 UNITS/5 ML SUSPENSION PO SCH ×4 (00:15→18:35)
[2018-08-14] MEDS: FERROUS SO4 325 MG TABLET (FP) PO SCH ×3 (08:13→17:50)
[2018-08-14] MEDS ORDERED: PT OWN MED DRAWER 7, Y5N ONE ×2 (09:00→10:36)
[2018-08-14] MEDS: BUDESONIDE/FORMETEROL FUMARATE 80/4.5 mcg INHALER IH SCH ×2 (09:36→21:36)
[2018-08-14] MEDS: NICOTINE 21 MG/24 HOURS TOPICAL PATCH TD SCH (09:36)
[2018-08-14] MEDS: PRENATAL VITAMINS W/ FOLIC ACID TABLET (FP) PO SCH (09:36)
[2018-08-14] MEDS: FLUoxetine HCL 10 MG CAPSULE (FP) PO SCH (09:36)
[2018-08-14] MEDS: guaiFENesin 200 MG/10 ML 10 ML UNIT-DOSE CUPS PO PRN ×2 (09:38→21:36)
[2018-08-14] MEDS: ALBUTEROL SO4 2.5/IPRATROPIUM 0.5 INH SOL 3 ML VIAL.NEB. NEB PRN (18:53)
[2018-08-14] MEDS: QUEtiapine FUMARATE 50 MG TABLET PO SCH (21:34)
[2018-08-14] MEDS: THIAMINE HCL 100 MG TABLET (FP) PO SCH (21:34)
[2018-08-14] MEDS: MELATONIN 5 MG TABLETS PO PRN (21:35)
[2018-08-15] MEDS: NYSTATIN 500,000 UNITS/5 ML SUSPENSION PO SCH ×4 (00:11→18:27)
[2018-08-15] MEDS: FERROUS SO4 325 MG TABLET (FP) PO SCH ×3 (08:19→18:28)
[2018-08-15] MEDS ORDERED: PT OWN MED DRAWER 7, Y5N ONE (08:52)
[2018-08-15] MEDS: NICOTINE 21 MG/24 HOURS TOPICAL PATCH TD SCH (10:14)
[2018-08-15] MEDS: FLUoxetine HCL 10 MG CAPSULE (FP) PO SCH (10:15)
[2018-08-15] MEDS: BUDESONIDE/FORMETEROL FUMARATE 80/4.5 mcg INHALER IH SCH ×2 (10:15→21:30)
[2018-08-15] MEDS: PRENATAL VITAMINS W/ FOLIC ACID TABLET (FP) PO SCH (10:15)
[2018-08-15] MEDS: THIAMINE HCL 100 MG TABLET (FP) PO SCH (21:27)
[2018-08-15] MEDS: MELATONIN 5 MG TABLETS PO PRN (21:27)
[2018-08-15] MEDS: QUEtiapine FUMARATE 50 MG TABLET PO SCH (21:29)
[2018-08-16] MEDS: NYSTATIN 500,000 UNITS/5 ML SUSPENSION PO SCH ×4 (00:25→18:37)
[2018-08-16] MEDS: FERROUS SO4 325 MG TABLET (FP) PO SCH ×3 (07:01→18:36)
[2018-08-16] MEDS: ONDANSETRON *ODT* 4 MG TABLET SL PRN ×2 (07:08→08:30)
[2018-08-16] MEDS ORDERED: PT OWN MED DRAWER 7, Y5N ONE ×2 (08:22→22:11)
[2018-08-16] MEDS ORDERED: TRIMETHOBENZAMIDE HCL 200MG/2ML INJ IM ONE (10:32)
[2018-08-16] MEDS: PRENATAL VITAMINS W/ FOLIC ACID TABLET (FP) PO SCH (10:38)
[2018-08-16] MEDS: NICOTINE 21 MG/24 HOURS TOPICAL PATCH TD SCH (10:38)
[2018-08-16] MEDS: FLUoxetine HCL 10 MG CAPSULE (FP) PO SCH (10:38)
[2018-08-16] MEDS: BUDESONIDE/FORMETEROL FUMARATE 80/4.5 mcg INHALER IH SCH ×2 (10:39→22:13)
--- NOTE | 2018-08-16 13:32 | PN ---
[facility] Progress Note Note: Called to see patient because she has been vomiting since yesterday evening approximately 6pm. She has received several doses of zofran, which has not stopped the vomiting. Tigan 200 IM was given at 10:45 AM, but she continues to vomit. Patient has been unable to keep down any fluids or food. PMHx of HIV disease, not on ART regimen; Cocaine, heroin, ETOH abuse, PNA X2 in the past. Impression: possible dehydration, Plan: Transfer to [facility] for evaluation and possible IV fluid hydration. Report given to MD at Emergency Department at [facility]. CBC, BMP 08/12/18 09:07 Vital Signs (72 hours) 08/14/18 08/14/18 08/14/18 00:30 03:30 07:08 Temperature 98.3 F Pulse Rate 99 H Respiratory 18 18 18 Rate Blood Pressure 92/67 08/15/18 08/15/18 08/16/18 00:30 06:32 00:30 Temperature 99.6 F Pulse Rate 111 H Respiratory 18 18 16 Rate Blood Pressure 104/72 08/16/18 08/16/18 08/16/18 03:30 06:43 13:29 Temperature 97.4 F L 98.4 F Pulse Rate 97 H 96 H Respiratory 16 16 18 Rate Blood Pressure 149/100 148/92
--- NOTE | 2018-08-16 21:57 | PN ---
[facility] Progress Note Note: Pt returned from ER after evaluation for GI pain, nausea and vomiting. Evaluation was neg: neg CT scan and labs. b/c of abnl UA- pt received one dose of ceftraixone and with paln for 5 day treatment with BActrim was suggested
[2018-08-16] MEDS: SULFAMETHOXAZOLE/TRIMETHOPRIM 800MG/160MG D.S. TABLET PO SCH (22:13)
[2018-08-16] MEDS: THIAMINE HCL 100 MG TABLET (FP) PO SCH (22:13)
[2018-08-16] MEDS: QUEtiapine FUMARATE 50 MG TABLET PO SCH (22:13)
[2018-08-16] MEDS ORDERED: cloNIDine HCL 0.1 MG TABLET PO ONE (22:58)
--- NOTE | 2018-08-16 23:00 | PN ---
[facility] Progress Note Note: Patient's blood pressure on her return from emergency room this night is B/P 160 /97. Vital Signs Temperature 97.6 F 08/16/18 22:50 Pulse Rate 98 H 08/16/18 22:50 Respiratory Rate 20 08/16/18 22:50 Blood Pressure 160/97 08/16/18 22:50 O2 Sat by Pulse Oximetry (%) Action:" Clonidine 0.1mg tablet oral ordered
[2018-08-17] MEDS: NYSTATIN 500,000 UNITS/5 ML SUSPENSION PO SCH ×4 (00:12→17:12)
[2018-08-17] MEDS: FERROUS SO4 325 MG TABLET (FP) PO SCH ×3 (07:38→17:12)
[2018-08-17] MEDS ORDERED: TRIMETHOBENZAMIDE HCL 200MG/2ML INJ IM ONE (10:06)
[2018-08-17] MEDS ORDERED: cloNIDine HCL 0.1 MG TABLET PO ONE (10:07)
[2018-08-17] MEDS ORDERED: PT OWN MED DRAWER 7, Y5N ONE (10:30)
[2018-08-17] MEDS: BUDESONIDE/FORMETEROL FUMARATE 80/4.5 mcg INHALER IH SCH ×2 (10:35→21:23)
[2018-08-17] MEDS: SULFAMETHOXAZOLE/TRIMETHOPRIM 800MG/160MG D.S. TABLET PO SCH ×2 (11:35→21:22)
[2018-08-17] MEDS: NICOTINE 21 MG/24 HOURS TOPICAL PATCH TD SCH (11:36)
[2018-08-17] MEDS: PRENATAL VITAMINS W/ FOLIC ACID TABLET (FP) PO SCH (11:37)
[2018-08-17] MEDS: FLUoxetine HCL 10 MG CAPSULE (FP) PO SCH (11:38)
[2018-08-17] MEDS: QUEtiapine FUMARATE 50 MG TABLET PO SCH (21:22)
[2018-08-17] MEDS: THIAMINE HCL 100 MG TABLET (FP) PO SCH (21:22)
[2018-08-17] MEDS: MELATONIN 5 MG TABLETS PO PRN (21:23)
[2018-08-18] MEDS: NYSTATIN 500,000 UNITS/5 ML SUSPENSION PO SCH ×4 (00:22→17:01)
[2018-08-18] MEDS: ACETAMINOPHEN 325 MG TABLET (FP) PO PRN (06:42)
[2018-08-18] MEDS: FERROUS SO4 325 MG TABLET (FP) PO SCH ×3 (07:08→16:47)
[2018-08-18] MEDS: SULFAMETHOXAZOLE/TRIMETHOPRIM 800MG/160MG D.S. TABLET PO SCH ×2 (09:40→21:24)
[2018-08-18] MEDS: PRENATAL VITAMINS W/ FOLIC ACID TABLET (FP) PO SCH (09:40)
[2018-08-18] MEDS: BUDESONIDE/FORMETEROL FUMARATE 80/4.5 mcg INHALER IH SCH ×2 (09:40→21:23)
[2018-08-18] MEDS: NICOTINE 21 MG/24 HOURS TOPICAL PATCH TD SCH (09:42)
[2018-08-18] MEDS: FLUoxetine HCL 10 MG CAPSULE (FP) PO SCH (09:44)
--- NOTE | 2018-08-18 13:36 | PN ---
[facility] Progress Note Note: Client seen this AM; sitting up, able to take food and fluids. Fever has resolved.
[2018-08-18] MEDS: QUEtiapine FUMARATE 50 MG TABLET PO SCH (21:23)
[2018-08-18] MEDS: THIAMINE HCL 100 MG TABLET (FP) PO SCH (21:23)
[2018-08-18] MEDS: MELATONIN 5 MG TABLETS PO PRN (21:24)
[2018-08-19] MEDS: NYSTATIN 500,000 UNITS/5 ML SUSPENSION PO SCH ×4 (00:15→17:19)
[2018-08-19] MEDS ORDERED: PT OWN MED DRAWER 7, Y5N ONE (02:04)
[2018-08-19] MEDS: ALBUTEROL SO4 8 GM HFA INHALER IH PRN ×2 (02:05→08:07)
[2018-08-19] MEDS: FERROUS SO4 325 MG TABLET (FP) PO SCH ×3 (08:07→17:19)
[2018-08-19] MEDS: SULFAMETHOXAZOLE/TRIMETHOPRIM 800MG/160MG D.S. TABLET PO SCH ×2 (09:40→21:34)
[2018-08-19] MEDS: PRENATAL VITAMINS W/ FOLIC ACID TABLET (FP) PO SCH (09:40)
[2018-08-19] MEDS: NICOTINE 21 MG/24 HOURS TOPICAL PATCH TD SCH (09:41)
[2018-08-19] MEDS: FLUoxetine HCL 10 MG CAPSULE (FP) PO SCH (09:41)
[2018-08-19] MEDS: BUDESONIDE/FORMETEROL FUMARATE 80/4.5 mcg INHALER IH SCH ×2 (09:41→21:35)
[2018-08-19] MEDS: ALBUTEROL SO4 2.5/IPRATROPIUM 0.5 INH SOL 3 ML VIAL.NEB. NEB PRN (11:15)
[2018-08-19] MEDS: guaiFENesin 200 MG/10 ML 10 ML UNIT-DOSE CUPS PO PRN (13:01)
[2018-08-19] MEDS ORDERED: ALBUTEROL SO4 2.5/IPRATROPIUM 0.5 INH SOL 3 ML VIAL.NEB. NEB PRN (14:30)
[2018-08-19] MEDS: MELATONIN 5 MG TABLETS PO PRN (21:34)
[2018-08-19] MEDS: QUEtiapine FUMARATE 50 MG TABLET PO SCH (21:34)
[2018-08-19] MEDS: THIAMINE HCL 100 MG TABLET (FP) PO SCH (21:34)
[2018-08-20] MEDS: NYSTATIN 500,000 UNITS/5 ML SUSPENSION PO SCH ×5 (00:24→23:11)
[2018-08-20] MEDS: FERROUS SO4 325 MG TABLET (FP) PO SCH ×3 (07:47→17:05)
[2018-08-20] MEDS ORDERED: PT OWN MED DRAWER 7, Y5N ONE (08:35)
[2018-08-20] MEDS: PRENATAL VITAMINS W/ FOLIC ACID TABLET (FP) PO SCH (10:00)
[2018-08-20] MEDS: SULFAMETHOXAZOLE/TRIMETHOPRIM 800MG/160MG D.S. TABLET PO SCH ×2 (10:00→21:10)
[2018-08-20] MEDS: FLUoxetine HCL 10 MG CAPSULE (FP) PO SCH (10:00)
[2018-08-20] MEDS: BUDESONIDE/FORMETEROL FUMARATE 80/4.5 mcg INHALER IH SCH ×2 (10:00→21:12)
[2018-08-20] MEDS: NICOTINE 21 MG/24 HOURS TOPICAL PATCH TD SCH (10:01)
[2018-08-20] MEDS: MELATONIN 5 MG TABLETS PO PRN (21:10)
[2018-08-20] MEDS: QUEtiapine FUMARATE 50 MG TABLET PO SCH (21:12)
[2018-08-20] MEDS: THIAMINE HCL 100 MG TABLET (FP) PO SCH (21:13)
[2018-08-21] MEDS: NYSTATIN 500,000 UNITS/5 ML SUSPENSION PO SCH ×3 (07:52→17:39)
[2018-08-21] MEDS: FERROUS SO4 325 MG TABLET (FP) PO SCH ×3 (07:52→16:56)
[2018-08-21] MEDS ORDERED: PT OWN MED DRAWER 7, Y5N ONE ×2 (08:08→10:18)
[2018-08-21] MEDS: FLUoxetine HCL 10 MG CAPSULE (FP) PO SCH (09:21)
[2018-08-21] MEDS: SULFAMETHOXAZOLE/TRIMETHOPRIM 800MG/160MG D.S. TABLET PO SCH (09:21)
[2018-08-21] MEDS: BUDESONIDE/FORMETEROL FUMARATE 80/4.5 mcg INHALER IH SCH ×2 (09:21→21:19)
[2018-08-21] MEDS: NICOTINE 21 MG/24 HOURS TOPICAL PATCH TD SCH (09:21)
[2018-08-21] MEDS: PRENATAL VITAMINS W/ FOLIC ACID TABLET (FP) PO SCH (09:21)
[2018-08-21] MEDS: ACETAMINOPHEN 325 MG TABLET (FP) PO PRN (16:53)
[2018-08-21] MEDS: ALBUTEROL SO4 8 GM HFA INHALER IH PRN (17:39)
[2018-08-21] MEDS: MELATONIN 5 MG TABLETS PO PRN (21:20)
[2018-08-21] MEDS: QUEtiapine FUMARATE 50 MG TABLET PO SCH (21:20)
[2018-08-21] MEDS: THIAMINE HCL 100 MG TABLET (FP) PO SCH (21:20)
[2018-08-22] MEDS: NYSTATIN 500,000 UNITS/5 ML SUSPENSION PO SCH ×2 (00:22→06:58)
[2018-08-22 06:42] VITALS: BP 94/70; PULSE 98; TEMP 98.1
[2018-08-22] MEDS: FERROUS SO4 325 MG TABLET (FP) PO SCH (07:03)
--- NOTE | 2018-08-22 08:23 | PN ---
[facility] Progress Note Note: Patient is scheduled for discharge today. Scripts for 30 days supply of medications(Prozac 10 mg/day, Seroquel 50 mg/hs) are electronically transmitted to [facility] @ [facility] [address]
[2018-08-22] MEDS ORDERED: PT OWN MED DRAWER 7, Y5N ONE (08:26)
[2018-08-22] MEDS: FLUoxetine HCL 10 MG CAPSULE (FP) PO SCH (09:04)
[2018-08-22] MEDS: NICOTINE 21 MG/24 HOURS TOPICAL PATCH TD SCH (09:04)
[2018-08-22] MEDS: PRENATAL VITAMINS W/ FOLIC ACID TABLET (FP) PO SCH (09:04)
[2018-08-22] MEDS: BUDESONIDE/FORMETEROL FUMARATE 80/4.5 mcg INHALER IH SCH (09:04)
--- NOTE | 2018-08-22 10:39 | PN ---
S Progress Note (SOAP) Subjective: PT COMPLETED REHAB AND DISCHARGED TODAY. PT HAS BEEN REFERRED TO [facility] ON [address], [place] FOR CD AFTERCARE. PT ALSO REPORTS HER PCP IS WITH [facility] AT SAME LOCATION FOR MEDICAL MANAGEMENT. PT REPORTS SHE HAS OWN MEDS AND HAS APPOINTMENT TO FOLLOW UP ON 08/23/18. PT IS ALERT O X 3. AMBULATING WITH STEADY GAIT. DENIES S/H/I. Objective: 08/22/18 10:37 Vital Signs 08/22/18 08/22/18 03:30 06:42 Temperature 98.1 F Pulse Rate 98 H Respiratory 16 18 Rate Blood Pressure 94/70 Laboratory Tests 08/12/18 08/13/18 09:07 09:50 WBC 6.8 RBC 3.13 L Hgb 9.2 L Hct 28.7 L MCV 91.8 MCH 29.5 MCHC 32.1 RDW 15.8 H Plt Count 563 H MPV 7.3 L Urine Color Dk yellow Urine Appearance Cloudy Urine pH 6.5 Ur Specific [place] 1.025 Urine Protein 1+ H Urine Glucose (UA) Negative Urine Ketones Trace H Urine Blood Negative Urine Nitrite Negative Urine Bilirubin Negative Urine Urobilinogen 1.0 Ur Leukocyte Esterase 1+ H Urine WBC (Auto) 18 Urine RBC (Auto) 3 Urine Casts (Auto) 21 U Epithel Cells (Auto) 10.9 U Sm Round Cell (Auto) Present Urine Bacteria (Auto) 381.3 ALL COPIES OF LAB RESULTS GIVEN TO PT TO FOLLOW UP WITH HER PRIMARY CARE PROVIDER ON APPOINTMENT DAY FOR MEDICAL MANAGEMENT. ORAL EXAM: NO WHITE COATING ON TONGUE OR PHARYNGEAL AREAS. Assessment: 08/22/18 10:39 NAD MEDICALLY STABLE ORAL THRUSH RESOLVED. Plan: D/C PT TODAY FOLLOW UP WITH PCP GUERLINE FRANCISCO FOR MEDICAL MANAGEMENT ON 08/23/18. FOLLOW UP WITH CD AFTERCARE RECOMMENDATION.
== END 2018-08-22 09:08 | disposition home or self-care (01) | DRG 772 ==
LOC: YASAS 11:53 → Y3E 11:54
PROVIDERS: ADMIT Neuromusculoskeletal Medicine & OMM; ATTEND Neuromusculoskeletal Medicine & OMM
PROC: HZ42ZZZ Group Counseling for Substance Abuse Treatment, Cognitive-Behavioral (ICD-10-PCS; principal; 2018-08-10)
DX: F11.20 Opioid dependence, uncomplicated (principal); F10.20 Alcohol dependence, uncomplicated; F14.20 Cocaine dependence, uncomplicated; F12.20 Cannabis dependence, uncomplicated; F17.210 Nicotine dependence, cigarettes, uncomplicated; F19.24 Other psychoactive substance dependence with psychoactive substance-induced mood disorder; F32.9 Major depressive disorder, single episode, unspecified; Z21 Asymptomatic human immunodeficiency virus [HIV] infection status; I10 Essential (primary) hypertension; J45.20 Mild intermittent asthma, uncomplicated; B37.0 Candidal stomatitis; R82.90 Unspecified abnormal findings in urine
CPT/HCPCS: 36415; 81003; 85027; 87086; 94640; J0735; Q0162

== ENCOUNTER 2018-08-16 14:00 | Emergency (ER) | payer OTHER ==
[2018-08-16] MEDS ORDERED: SODIUM CHLORIDE 1,000 ML IV STA (14:16)
[2018-08-16] MEDS ORDERED: FAMOTIDINE 20 MG/50 ML IVPB 20 MG/50 ML MG IVPB ONE ×2 (14:16→16:28)
--- NOTE | 2018-08-16 14:19 | PDOC ---
History of Present Illness - General Chief Complaint: Nausea/Vomiting Stated Complaint: VOMITING,ABD PAIN Time Seen by Provider: 08/16/18 14:19 History Source: Patient - History of Present Illness Initial Comments: 08/16/18 14:30 The patient is a 48 year old female with a PMH of HIV (not currently on ARV therapy), Asthma (no hospitalizations/intubations), heroin/ETOH/ cocaine bause who presents to our ED from [facility] c/o acute onset of vomiting yesterday evening around 11:30 p.m. Patient states she took her nightly Seroquel and melatonin when she suddenly felt abdominal cramping and vomited. Abdominal cramping is mostly localized to her epigastrium and she has had 10 episodes of NBNB emesis. Last PO intake was yesterday around 8 p.m. and last BM was earlier today and was normal. Last reported heroin and cocaine use was 10 days previous. Patient was on Genvoya until 6 months previous at which time she stopped her HIV care in the [place] due to social issues. NKDA Social: 6-7 cigarettes daily, $50 cocaine daily, daily heroin use, 2 six-packs of beer daily As per EMR, @ [facility] patient s/p multiple doses of Zofran overnight and one dose of Tigan today with intractable emesis. No previous evaluations in our ED. Past History - Past Medical History Allergies/Adverse Reactions: Allergies Allergy/AdvReac Type Severity Reaction Status Date / Time No Known Allergies Allergy Verified 08/16/18 18:43 Home Medications: Ambulatory Orders Albuterol Sulfate Inhaler - [Ventolin Hfa Inhaler -] 2 inh PO Q4H PRN 08/10/18 Budesonide/Formeterol Fumarate [SYMBICORT 80/4.5mcg -] 1 inh IH BID 08/10/18 Ferrous Sulfate 325 mg PO TID 08/10/18 Fluoxetine HCl [Prozac] 10 mg PO DAILY 08/10/18 Quetiapine Fumarate [Seroquel] 25 mg PO HS 08/10/18 Anemia: No Asthma: Yes Cancer: No Cardiac Disorders: No CVA: No COPD: No CHF: No Dementia: No Diabetes: No GI Disorders: No Disorders: No HTN: No Hypercholesterolemia: No Kidney Stones: No Liver Disease: No Seizures: No Thyroid Disease: No - Surgical History Abdominal Surgery: No Appendectomy: No Cardiac Surgery: No Cholecystectomy: No Lung Surgery: No Neurologic Surgery: No Orthopedic Surgery: No - Reproductive History PID: Yes (in 2008) - Suicide/Smoking/Psychosocial Hx Smoking History: Current every day smoker Have you smoked in the past 12 months: Yes Number of Cigarettes Smoked Daily: 10 'Breaking Loose' booklet given: 08/06/18 Hx Alcohol Use: Yes Drug/Substance Use Hx: Yes Substance Use Type: Alcohol, Cocaine, Heroin, Marijuana Hx Substance Use Treatment: No Review of Systems - Review of Systems Constitutional: Yes: Chills, Fever HEENTM: No: Recent change in vision Respiratory: No: Cough, Shortness of Breath Cardiac (ROS): No: Chest Pain, Lightheadedness, Palpitations, Syncope ABD/GI: Yes: Constipated, Nausea, Indigestion, Abdominal cramping. No: Diarrhea *Physical Exam - Physical Exam Comments: 08/16/18 17:12 Cachetic, alert, moves all 4 extremities CV: S1, S2 no M/R/G Respiratory: CLTA B/L, no wheeze/crackle Abdomen: soft, (+) bowel sounds, epigastric TTP w/o peritoneal sign Extremity: 2+ DP pulse, no edema Neuro: A&O x3, CN II-XII intact Heart Score/ECG Review - ECG Impressions Comment:: 08/16/18 17:54 HR 97, NSR LVH w/o any BALA/STD/TWI ED Treatment Course - LABORATORY CBC & Chemistry Diagram: 08/16/18 14:24 08/16/18 14:24 Medical Decision Making - Medical Decision Making 08/16/18 14:36 48 year old female cachetic ill appearing female from [facility] with acute onset of abdominal cramping and vomiting. Last heroin, cocaine use > 10 days previous. Tachycardic (HR 107) other VS unremarkable. Epigastric TTP w/o peritoneal sign. Frontal diagnosis: malignancy, abdominal path 2/2 to advanced HIV/cony AIDS, r/o ACS as well as renal colic, biliary colic, metabolic/ electrolyte derangements. GERD, PUD, esophageal spasm, pancreatitis, hepatitis, constipation, colitis, gastroenteritis, cholecystitis, UTI, pyelonephritis, hernia. PLAN: Lipase, Lactic Acid, basic labs, GI cocktail, IV hydration. CTAP. Reassess. 08/16/18 15:36 No leukocytosis EKG non-ischemic as documented in EKG section of EMR 08/16/18 16:29 BUN 19/Cr 0.6 Troponin (-) x1 Mild Hyponatremia (Na 131), BUN 19 - likely 2/2 to decreased hypovolemia 2/2 to repeated emesis 08/16/18 17:28 Repeat VS HR 92, SpO2 97% on RA 08/16/18 17:32 Patient to CTAP 08/16/18 17:44 UA from 08/13/18 @ [facility] shows 1+ leukocyte esterase, 381 bacteria UCx pending 1 gram Ceftriaxone - as per EMR, patient did not receive Abx @ [facility] 08/16/18 17:57 Order placed in EMR for [facility] appointment 08/16/18 18:31 CTAP negative for acute abdominal pathology, 1.4 x1.1 RLL subpleural opacity - ? inflammatory or infectious; patient requires outpatient follow-up. 08/16/18 18:42 Order placed in EMR for 7 day course of Bactrim for presumptive UTI 08/16/18 18:46 Case d/w NADINE Young - counseled that patient needs antibiotic 08/16/18 18:51 Patient reassessed @ bedside, symptomatically improved; given copy of CT scan and instruction to f/u with PMD following discharge from [facility] for repeat CT and furhte revaluation of lung opacity 08/16/18 18:52 Case d/w Stephany, [employer], - states that orders placed in our EMR will be picked up from [facility]; will give patient 5 day course of Bactrim for presumptive UTI. 08/16/18 18:57 Patient discharged to [facility]. *DC/Admit/Observation/Transfer Diagnosis at time of Disposition: Vomiting, Abdominal cramping - Discharge Dispostion Disposition: CARE HOME FACILITY Condition at time of disposition: Good Decision to Admit order: No - Referrals Referrals: Jonathon Wilks MD [Staff Physician] - - Patient Instructions Additional Instructions: We are providing you with a copy of your CT scan. Please follow-up with a primary care doctor for further evaluation after your discharge from [facility]. Your care is not complete until you are evaluated by a primary care doctor. We have provided you with a referral or you can call your insurance company for a list of doctors. Advance your diet as tolerated starting with soft foods. Return to the Emergency Department for any new/worsening/concerning symptoms. - Post Discharge Activity
[2018-08-16 14:26] VITALS: BMI 15.3
--- NOTE | 2018-08-16 14:32 | PDOC ---
Documentation entered by Reynaldo Frederick SCRIBE, acting as scribe for Alysha Brown MD. Alysha Brown MD: This documentation has been prepared by the Otoniel erickson Renju, SCRIBE, under my direction and personally reviewed by me in its entirety. I confirm that the documentation accurately reflects all work, treatment, procedures, and medical decision making performed by me. Attending Attestation - Resident Resident Name: SaadDesi - ED Attending Attestation I have performed the following: I have examined & evaluated the patient, The case was reviewed & discussed with the resident, I agree w/resident's findings & plan - HPI HPI: 08/16/18 14:39 48 YOF PMHx of HIV disease, not on ART regimen, cocaine, heroin, EtOH abuse, asthma, PNA X2 from [facility] who presents to the emergency department for evaluation of nausea and vomiting. Patient reports ten episodes of non bloody emesis after an episode of sharp abdominal pain last night. Patient sent to ED for further evaluation of vomiting despite receiving several doses of zofran. Endorses subjective fever and chills. - Physicial Exam PE: 08/16/18 14:24 NAD, cachectic, frail appearing, EOMI, PERRL, dry mucus membranes, nl conjunctiva, anicteric; neck supple. lungs clear, +tachycardic, abdomen soft diffuse tenderness, vol guarding, no rebound. Back nontender. CAO x4, no focal neuro deficits. No peripheral edema. normal color for ethnicity, WWP. 08/16/18 15:13 08/16/18 15:13 08/16/18 15:19 - Medical Decision Making 08/16/18 15:20 See HPI for details. 48 YOF PMHx of HIV disease, not on ART regimen, cocaine, heroin, EtOH abuse, asthma, PNA X2 from [facility] who presents to the emergency department for evaluation of nausea and vomiting. Patient reports ten episodes of non bloody emesis after an episode of sharp abdominal pain last night. Patient sent to ED for further evaluation of vomiting despite receiving several doses of zofran. Endorses subjective fever and chills. Prior notes reviewed, including admissions, discharges and consultations. Vital signs reviewed, +tachycardic; rectal temp_ appearing dehydrated, given IVF. reglan here for n/v, no further episodes. EKG normal sinus rhythm, no interval abnormalities, narrow QRS, ST and T wave segments and morphology normal. +LVH, KEATON with upsloping ST segment elevations w/o depressions laboratory results and imaging reviewed, basic labs and lytes wnl, notable for neg trop, normal LFTs/lactate and lipase CT a/p to eval for abdominal pathology, as +AP and HIV history Laboratory results are unremarkable, lipase is normal, negative test. No leukocytosis or evidence anemia, no shift or predominance. I lites and creatinine are also normal. CT abdomen and pelvis negative for acute pathology, there is nonspecific bilateral lower lung field ground glass interstitial thickening, some subpleural opacities which may be chronic. Nonspecific partially calcification of right lower lobe subpleural opacity, clinical correlation is recommended. She does not have any respiratory symptoms no cough no congestion. She is coming in with mostly abdominal pain and there is no acute pathology identified in the abdomen/pelvis. prior urine cultures sent, awaiting results, will tx with bactrim x 1 week, f/u cultures [facility] follow up, for HIV management DC back to [facility] 08/16/18 17:02 08/16/18 17:03 08/16/18 17:05 08/16/18 19:05 08/17/18 15:23 Heart Score/ECG Review #1 ECG reviewed & interpreted by me at: 16:30 General ECG Interpretation: Sinus Rhythm, Normal Rate, Normal Intervals Compared to previous ECG there are: No significant change 08/16/18 17:04 EKG normal sinus rhythm, no interval abnormalities, narrow QRS, ST and T wave segments and morphology normal. +LVH, KEATON with upsloping ST segment elevations w/o depressions
[2018-08-16] MEDS ORDERED: METOCLOPRAMIDE HCL INJECTION 10 MG/2 ML VIAL IVPUSH ONE (14:34)
[2018-08-16 15:48] LABS: BASO % 0.2 % (0-2.0); EOS % 0.3 % (0-4.5); HEMATOCRIT 32.7 % (32.4-45.2); HEMOGLOBIN 10.7 GM/dL (10.7-15.3); LYMPH % 16.1 % (8-40); MCH 29.5 pg (25.7-33.7); MCHC 32.8 g/dl (32.0-36.0); MEAN CELL VOLUME 90.1 fl (80-96); MEAN PLT VOLUME 7.1 fl (7.5-11.1); MONO % 13.2 % (3.8-10.2); NEUT % 70.2 % (42.8-82.8); PLATELET COUNT 742 K/MM3 (134-434); RBC 3.63 M/mm3 (3.60-5.2); RDW 15.1 % (11.6-15.6); WHITE BLOOD COUNT 4.5 K/mm3 (4.0-10.0)
[2018-08-16 16:19] LABS: ALBUMIN 2.6 g/dl (3.4-5.0); ALK PHOS 80 U/L (45-117); ANION GAP 8 MMOL/L (8-16); BILIRUBIN,TOTAL 0.4 mg/dL (0.2-1); BLOOD UREA NITROGEN 19 mg/dL (7-18); CHLORIDE 99 mmol/L (98-107); CO2 24 mmol/L (21-32); CREATININE 0.6 mg/dL (0.55-1.3); GLUCOSE,RANDOM 101 mg/dL (74-106); LIPASE 125 U/L (73-393); SGPT/ALT 20 U/L (13-61); SODIUM 131 mmol/L (136-145); TOT PROT 8.9 g/dl (6.4-8.2)
[2018-08-16 16:20] LABS: SGOT/AST 50 U/L (15-37)
[2018-08-16] MEDS ORDERED: METOCLOPRAMIDE HCL INJECTION 10 MG/2 ML VIAL ONE (16:27)
[2018-08-16 18:19] LABS: PLATELET ESTIMATE SIGNIFICANT INCREASE
[2018-08-16] MEDS ORDERED: CEFTRIAXONE 1 GM/50 ML BAG ONE (19:31)
[2018-08-16 20:02] VITALS: TEMP 98.8
[2018-08-16 21:39] VITALS: BP 154/94; PULSE 96
[2018-08-16] MEDS ORDERED: SULFAMETHOXAZOLE/TRIMETHOPRIM 800MG/160MG D.S. TABLET PO SCH (22:00)
[2018-08-17] MEDS ORDERED: SULFAMETHOXAZOLE/TRIMETHOPRIM 800MG/160MG D.S. TABLET PO SCH (10:00)
--- NOTE | 2018-08-17 17:22 | EKG ---
Test Reason : Blood Pressure : / mmHG Vent. Rate : 097 BPM Atrial Rate : 097 BPM P-R Int : 142 ms QRS Dur : 072 ms QT Int : 348 ms P-R-T Axes : 073 076 076 degrees QTc Int : 441 ms NORMAL SINUS RHYTHM MODERATE VOLTAGE CRITERIA FOR LVH, MAY BE NORMAL VARIANT BORDERLINE ECG WHEN COMPARED WITH ECG OF 14-DEC-2017 17:38, NO SIGNIFICANT CHANGE WAS FOUND Confirmed by JANINE MINER, BRINA ([id number]) on 08/17/2018 5:21:47 PM Referred By: Confirmed By:BRINA MEHTA MD
== END 2018-08-16 21:41 | disposition other institution (70) ==
LOC: JER 14:00
PROC: 3E033GC Introduction of Other Therapeutic Substance into Peripheral Vein, Percutaneous Approach (ICD-10-PCS; principal; 2018-08-16)
PROC: 3E033NZ Introduction of Analgesics, Hypnotics, Sedatives into Peripheral Vein, Percutaneous Approach (ICD-10-PCS; 2018-08-16)
PROC: 3E03329 Introduction of Other Anti-infective into Peripheral Vein, Percutaneous Approach (ICD-10-PCS; 2018-08-16)
DX: R10.9 Unspecified abdominal pain (principal); R11.10 Vomiting, unspecified; J45.909 Unspecified asthma, uncomplicated; F11.10 Opioid abuse, uncomplicated; F10.10 Alcohol abuse, uncomplicated; F14.10 Cocaine abuse, uncomplicated; Z87.440 Personal history of urinary (tract) infections; Z87.01 Personal history of pneumonia (recurrent); Z21 Asymptomatic human immunodeficiency virus [HIV] infection status
CPT/HCPCS: 36415; 74177-TC; 80053; 83605; 83690; 84484; 84703; 85025; 93005; 93010; 96365; 96375; 96376; 99283-25; J7030